=== PATIENT | female | born 1945 | race Caucasian/White ===

== ENCOUNTER 2019-07-11 09:02 | Inpatient (IN) | payer MEDICARE, OTHER ==
[~2019-07-11 09:02] MED LIST: Acetaminophen 325 MG Tab PO SCH; Bisacodyl 5 MG Tab PO PRN; Lidocaine 1%/Sod Bicarbonate in NS 8.4% 1 ML Syringe IDERM PRN; Morphine 8 MG, EPINEPHrine 0.3 MG, Cefuroxime 750 MG, Ketorolac 30 MG, Sodium Chloride ... ONE; Naloxone 0.4 MG/ML SDV IVPUSH PRN; Ondansetron 4 MG/2 ML SDV IVPUSH PRN; Pregabalin 25 MG Cap PO SCH; Ropivacaine 0.5% 5 MG/ML 30 ML SDV ONE; Sodium Chloride 0.9% 10 ML Syringe FLUSH PRN; oxyCODONE ER 10 MG TAB.ER PO SCH
--- NOTE | 2019-07-11 09:46 | PCM.CONS ---
H&P History of Present Illness - General Date of Service: 07/11/19 Admit Problem/Dx: Admission Diagnosis/Problem Admission Diagnosis/Problem Osteoarthritis of knee Source of Information: Patient, Old Records, Provider, RN, RN Notes Reviewed History Limitations: Reports: No Limitations - History of Present Illness Initial Comments - Free Text/Narative: Ananya Cobb is a 74 yo female patient of Dr. Diego who is post-operative day 0 of right TKA. Hospital medicine was consulted for post-operative medical care of the following listed medical conditions. At this time she is resting comfortably in bed. Pain is controlled. She denies any chest pain, shortness of breath, palpitations, nausea, or vomiting. She carries a history of: Osteopenia , Breast cancer, TIA, hypothyroidism, GERD, Questionable PFO on echo from . She is a former smoker. She is a full code. Her primary care provider is Dr. Spicer. Right Knee Pain Score (Numeric/FACES): 0 - Related Data Allergies/Adverse Reactions: Allergies Allergy/AdvReac Type Severity Reaction Status Date / Time adhesive Allergy Rash Verified 07/08/19 14:03 bupropion HCl Allergy Hives Verified 07/08/19 14:03 [From Wellbutrin] wheat Allergy Cannot Verified 07/08/19 14:03 Remember Home Medications: Home Meds Calcium Carbonate [Calcium] 1,000 mg PO DAILY 07/08/19 [History] Cannabidiol (Cbd) Extract [CBD Oil] 1 dose PO DAILY 07/08/19 [History] Cholecalciferol (Vitamin D3) [Vitamin D3] 5,000 unit PO DAILY 07/08/19 [History] FLUoxetine HCl [Fluoxetine HCl] 20 mg PO DAILY 07/08/19 [History] Fish Oil/DHA/EPA [Fish Oil 1,200 MG] 1 cap PO DAILY 07/08/19 [History] Furosemide 40 mg PO DAILY 07/08/19 [History] Gabapentin [Neurontin] 800 mg PO TID 07/08/19 [History] Levothyroxine 75 mcg PO DAILY 07/08/19 [History] Meloxicam 15 mg PO DAILY 07/08/19 [History] Potassium Chloride 20 meq PO DAILY 07/08/19 [History] Vitamin B Complex [B Complex] 1 tab PO DAILY 07/08/19 [History] Zolpidem [Ambien] 10 mg PO BEDTIME PRN 07/08/19 [History] atorvaSTATin [Lipitor] 10 mg PO BEDTIME 07/08/19 [History] Past Medical History HEENT History: Reports: Impaired Vision Cardiovascular History: Reports: None Respiratory History: Reports: None Gastrointestinal History: Reports: None Genitourinary History: Reports: None BRICKLAYER TENDER History: Reports: None Musculoskeletal History: Reports: Osteoarthritis Neurological History: Reports: TIA Other Neuro History: LEFT ARM WEAKNESS AND SLURRED SPEECH, NO PERMANENT DEFECITS Psychiatric History: Reports: None Endocrine/Metabolic History: Reports: None Hematologic History: Reports: None Immunologic History: Reports: None Oncologic (Cancer) History: Reports: Breast Dermatologic History: Reports: None - Past Surgical History Head Surgeries/Procedures: Reports: None HEENT Surgical History: Reports: Eye Surgery, Tonsillectomy Cardiovascular Surgical History: Reports: None Respiratory Surgical History: Reports: None GI Surgical History: Reports: Cholecystectomy, Colonoscopy Female Surgical History: Reports: Breast Biopsy Male Surgical History: Reports: None Endocrine Surgical History: Reports: None Neurological Surgical History: Reports: None Musculoskeletal Surgical History: Reports: None Oncologic Surgical History: Reports: Lumpectomy Dermatological Surgical History: Reports: None Social & Family History - Tobacco Use Smoking Status *Q: Former Smoker Used Tobacco, but Quit: Yes Month/Year Tobacco Last Used: 2004 - Caffeine Use Caffeine Use: Reports: Coffee, Soda - Recreational Drug Use Recreational Drug Use: Yes Drug Use in Last 12 Months: No H&P Review of Systems - Review of Systems: Review Of Systems: See Below General: Reports: No Symptoms. Denies: Fever, Chills HEENT: Reports: No Symptoms. Denies: Headaches, Sore Throat Pulmonary: Reports: No Symptoms. Denies: Shortness of Breath, Wheezing, Pleuritic Chest Pain, Cough, Sputum Cardiovascular: Reports: No Symptoms. Denies: Chest Pain, Palpitations, Dyspnea on Exertion, Orthopnea Gastrointestinal: Reports: No Symptoms. Denies: Abdominal Pain, Constipation, Diarrhea, Nausea, Vomiting Genitourinary: Reports: No Symptoms. Denies: Pain Musculoskeletal: Reports: Leg Pain (right ) Skin: Reports: No Symptoms. Denies: Cyanosis Psychiatric: Reports: No Symptoms. Denies: Confusion Neurological: Reports: Difficulty Walking, Gait Disturbance Hematologic/Lymphatic: Reports: No Symptoms Immunologic: Reports: No Symptoms Exam - Exam Exam: See Below - Exam Quality Assessment: Supplemental Oxygen, DVT Prophylaxis General: Alert, Oriented, Cooperative. No: Mild Distress HEENT: Conjunctiva Clear, EACs Clear, EOMI, Hearing Intact, Nares Patent, Posterior Pharynx Clear, PERRLA. No: Mucosa Moist & [place] (somewhat dry ) Neck: Supple, Trachea Midline Lungs: Clear to Auscultation, Normal Respiratory Effort Cardiovascular: Regular Rate, Regular Rhythm GI/Abdominal Exam: Normal Bowel Sounds, Soft, Non-Tender, No Distention, No Abnormal Bruit (Female) Exam: Deferred Rectal (Female) Exam: Deferred Back Exam: Normal Inspection, Full Range of Motion Extremities: Normal Inspection, Normal Range of Motion, Non-Tender, No Pedal Edema, Normal Capillary Refill Peripheral Pulses: 2+: Radial (L), Radial (R), Dorsalis Pedis (L), Dorsalis Pedis (R) Skin: Warm, Dry, Intact Neurological: Cranial Nerves Intact (Grossly ) Neuro Extensive - Mental Status: Alert, Oriented x3, Normal Mood/Affect Consult PN Assessment/Plan POD#: 0 Procedures: Procedures CATARACT SURG W/IOL 1 STAGE (08/23/15) (1) S/P total knee arthroplasty SNOMED Code(s): 9351779808479, 731171532, 1115201020137 Code(s): Z96.659 - PRESENCE OF UNSPECIFIED ARTIFICIAL KNEE JOINT Priority: High Current Visit: Yes Qualifiers: Laterality: right Qualified Code(s): Z96.651 - Presence of right artificial knee joint (2) Osteoarthritis SNOMED Code(s): 782600182 Code(s): M19.90 - UNSPECIFIED OSTEOARTHRITIS, UNSPECIFIED SITE Priority: High Current Visit: Yes Qualifiers: Osteoarthritis location: knee Osteoarthritis type: primary Laterality: right Qualified Code(s): M17.11 - Unilateral primary osteoarthritis, right knee (3) Breast cancer SNOMED Code(s): 304465555 Code(s): C50.919 - MALIGNANT NEOPLASM OF UNSP SITE OF UNSPECIFIED FEMALE BREAST Priority: Low Current Visit: No Qualifiers: Breast location: unspecified site of breast Estrogen receptor status: unspecified Patient sex: female Laterality: unspecified laterality Qualified Code(s): C50.919 - Malignant neoplasm of unspecified site of unspecified female breast (4) History of TIA (transient ischemic attack) SNOMED Code(s): 617255727 Code(s): Z86.73 - PRSNL HX OF TIA (TIA), AND CEREB INFRC W/O RESID DEFICITS Priority: Low Current Visit: No (5) GERD (gastroesophageal reflux disease) SNOMED Code(s): 961979480 Code(s): K21.9 - GASTRO-ESOPHAGEAL REFLUX DISEASE WITHOUT ESOPHAGITIS Priority: Low Current Visit: No Qualifiers: Esophagitis presence: esophagitis presence not specified Qualified Code(s) : K21.9 - Gastro-esophageal reflux disease without esophagitis (6) Hypothyroidism SNOMED Code(s): 69300763 Code(s): E03.9 - HYPOTHYROIDISM, UNSPECIFIED Priority: Low Current Visit : No Qualifiers: Hypothyroidism type: unspecified Qualified Code(s): E03.9 - Hypothyroidism , unspecified Problem List Initiated/Reviewed/Updated: Yes Plan: I/P: Acute: S/P right total knee arthroplasty - post-operative day 0 -DVT prophylaxis and pain management per primary care team -PT/OT -IS/RT -Monitor oxygen saturation -Titrate oxygen as needed -Home medications reviewed -Vital signs stable -Monitor labs -Pre-operative Hgb was 12.9 -Pre-operative GFR was 83 -Pre-operative BUN was 21 -Echo shoed EF of >70 with moderate mitral insufficiency Osteoarthritis of right knee -Pain management per primary care team Chronic: Osteopenia Breast cancer TIA hypothyroidism GERD Questionable PFO on echo from 04/18/19 Plan: CM for discharge planning GI prophylaxis Home medications as indicated Other orders as listed above Routine AM labs She is a full code. Her PCP is Dr. Spicer Thank you for allowing us to participate in the care of this patient!! Requesting Provider: Dr. Diego Date Consult Requested: 07/11/19 Patient History Reviewed: Yes Admission H&P Reviewed: Yes
[2019-07-11] MEDS: Lactated Ringers 1,000 ML IV SCH ×2 (10:00→16:30)
[2019-07-11] MEDS ORDERED: ceFAZolin 1 GM Vial ONE ×2 (10:43→11:16)
[2019-07-11] MEDS ORDERED: Bupivacaine 0.25% 10 ML SDV ONE (10:43)
[2019-07-11] MEDS ORDERED: Vancomycin 1 GM SDV ONE (10:43)
[2019-07-11] MEDS ORDERED: Iodine/Sodium Iodide 2% Tincture 30 ML Bottle ONE (10:43)
--- NOTE | 2019-07-11 10:56 | PCM.PREANE ---
Preanesthetic Assessment - Procedure Proposed Procedure: RTKA - Anesthesia/Transfusion/Family Hx Anesthesia History: Prior Anesthesia Without Reaction Family History of Anesthesia Reaction: No Transfusion History: No Prior Transfusion(s) - Review of Systems General: No Symptoms Pulmonary: No Symptoms Cardiovascular: No Symptoms Gastrointestinal: No Symptoms Neurological: No Symptoms Other: Reports: Easy Bruising, Thyroid Problems (hypothyroid) - Physical Assessment NPO Status Date: 07/10/19 NPO Status Time: 23:30 Vital Signs: Last Vital Signs Temp 37.1 C 07/11/19 09:20 Pulse 68 07/11/19 09:20 Resp 16 07/11/19 09:20 BP 137/57 L 07/11/19 09:20 Pulse Ox 97 07/11/19 09:20 Height: 1.6 m Weight: 99.337 kg ASA Class: 2 Mental Status: Alert & Oriented x3 Dentition: Reports: Implants (two implants on top), Caries Thyro-Mental Finger Breadths: 3 Mouth Opening Finger Breadths: 3 ROM/Head Extension: Limited/Partial Lungs: Clear to Auscultation, Normal Respiratory Effort Cardiovascular: Regular Rate, Regular Rhythm - Lab Values: Laboratory Last Values MRSA (PCR) Negative 06/29/19 17:02 - Allergies Allergies/Adverse Reactions: Allergies Allergy/AdvReac Type Severity Reaction Status Date / Time adhesive Allergy Rash Verified 07/08/19 14:03 bupropion HCl Allergy Hives Verified 07/08/19 14:03 [From Wellbutrin] wheat Allergy Cannot Verified 07/08/19 14:03 Remember - Blood Blood Available: No Product(s) Available: None - Anesthesia Plan Pre-Op Medication Ordered: None - Acknowledgements Anesthesia Type Planned: Spinal Pt an Appropriate Candidate for the Planned Anesthesia: Yes Alternatives and Risks of Anesthesia Discussed w Pt/Guardian: Yes Pt/Guardian Understands and Agrees with Anesthesia Plan: Yes PreAnesthesia Questionnaire HEENT History: Reports: Impaired Vision Cardiovascular History: Reports: None Respiratory History: Reports: None Gastrointestinal History: Reports: None, GERD Genitourinary History: Reports: None PHYSICAL THERAPY INSTRUCTOR History: Reports: None Musculoskeletal History: Reports: Osteoarthritis Neurological History: Reports: TIA Other Neuro History: LEFT ARM WEAKNESS AND SLURRED SPEECH, NO PERMANENT DEFECITS Psychiatric History: Reports: None Endocrine/Metabolic History: Reports: None Hematologic History: Reports: None, Other (See Below) (Pt states,"I test false positive for hepatis and HIV") Immunologic History: Reports: None Oncologic (Cancer) History: Reports: Breast Dermatologic History: Reports: None - Past Surgical History Head Surgeries/Procedures: Reports: None HEENT Surgical History: Reports: Eye Surgery, Tonsillectomy Cardiovascular Surgical History: Reports: None Respiratory Surgical History: Reports: None GI Surgical History: Reports: Cholecystectomy, Colonoscopy Female Surgical History: Reports: Breast Biopsy Male Surgical History: Reports: None Endocrine Surgical History: Reports: None Neurological Surgical History: Reports: None Musculoskeletal Surgical History: Reports: None Oncologic Surgical History: Reports: Lumpectomy Dermatological Surgical History: Reports: None - SUBSTANCE USE Smoking Status *Q: Former Smoker Tobacco Use Within Last Twelve Months: No Second Hand Smoke Exposure: No Days Per Week of Alcohol Use: 0 Number of Drinks Per Day: 0 Total Drinks Per Week: 0 Recreational Drug Use History: No - HOME MEDS Home Medications: Home Meds Calcium Carbonate [Calcium] 1,000 mg PO DAILY 07/08/19 [History] Cannabidiol (Cbd) Extract [CBD Oil] 1 dose PO DAILY 07/08/19 [History] Cholecalciferol (Vitamin D3) [Vitamin D3] 5,000 unit PO DAILY 07/08/19 [History] FLUoxetine HCl [Fluoxetine HCl] 20 mg PO DAILY 07/08/19 [History] Fish Oil/DHA/EPA [Fish Oil 1,200 MG] 1 cap PO DAILY 07/08/19 [History] Furosemide 40 mg PO DAILY 07/08/19 [History] Gabapentin [Neurontin] 800 mg PO TID 07/08/19 [History] Levothyroxine 75 mcg PO DAILY 07/08/19 [History] Meloxicam 15 mg PO DAILY 07/08/19 [History] Potassium Chloride 20 meq PO DAILY 07/08/19 [History] Vitamin B Complex [B Complex] 1 tab PO DAILY 07/08/19 [History] Zolpidem [Ambien] 10 mg PO BEDTIME PRN 07/08/19 [History] atorvaSTATin [Lipitor] 10 mg PO BEDTIME 07/08/19 [History] - CURRENT (IN HOUSE) MEDS Current Meds: Current Medications Acetaminophen (Tylenol) 975 mg PO ONETIME [place] Stop: 07/11/19 12:00 Last Admin: 07/11/19 09:46 Dose: 975 mg Bisacodyl (Dulcolax) 5 mg PO DAILY PRN PRN Reason: Constipation Cyclobenzaprine HCl (Flexeril) 5 mg PO BID PRN PRN Reason: Spasms Docusate Sodium (Colace) 100 mg PO BID [place] Famotidine (Pepcid) 20 mg PO Q12H [facility] Lactated Ringer's (Ringers, Lactated) 1,000 mls @ 125 mls/hr IV ASDIRECTED [facility] Stop: 07/11/19 23:00 Last Admin: 07/11/19 10:00 Dose: 125 mls/hr Cefazolin Sodium/Dextrose 2 gm (/ Premix) 50 mls @ 100 mls/hr IV Q8H [facility] Stop: 07/11/19 23:29 Ketorolac Tromethamine (Toradol) 15 mg IVPUSH Q6H PRN PRN Reason: Pain Lidocaine/Sodium Bicarbonate (Buffered Lidocaine 1% In Ns 8.4%) 0.25 ml IDERM ONETIME PRN PRN Reason: Prior to IV Start Stop: 07/11/19 18:00 Last Admin: 07/11/19 09:59 Dose: 0.25 ml Magnesium Hydroxide (Milk Of Magnesia) 30 ml PO BID PRN PRN Reason: Constipation Morphine Sulfate (Morphine) 2 mg IVPUSH Q2H PRN PRN Reason: Breakthrough Pain Naloxone HCl (Narcan) 0.1 mg IVPUSH Q5M PRN PRN Reason: Oversedation Ondansetron HCl (Zofran) 4 mg IVPUSH Q6H PRN PRN Reason: Nausea/Vomiting Oxycodone HCl (Oxycontin) 10 mg PO ONETIME [facility] Stop: 07/11/19 12:00 Last Admin: 07/11/19 09:46 Dose: 10 mg Oxycodone/Acetaminophen (Percocet 325-5 Mg) 1 - 2 tab PO Q4H PRN PRN Reason: Pain Pregabalin (Lyrica) 50 mg PO ONETIME [facility] Stop: 07/11/19 12:00 Last Admin: 07/11/19 09:46 Dose: 50 mg Senna (Senna) 8.6 mg PO BID PRN PRN Reason: Constipation Sodium Chloride (Saline Flush) 10 ml FLUSH ASDIRECTED PRN PRN Reason: Keep Vein Open Stop: 07/11/19 18:00 Discontinued Medications Bupivacaine HCl (Sensorcaine-Mpf 0.25%) Confirm Administered Dose 30 ml .ROUTE .STK-MED ONE Stop: 07/11/19 10:44 Cefazolin Sodium (Ancef) Confirm Administered Dose 2 gm .ROUTE .STK-MED ONE Stop: 07/11/19 10:44 Morphine Sulfate 8 mg/Epinephrine HCl 0.3 mg/Cefuroxime Sodium 750 mg/Ketorolac Tromethamine 30 mg/Sodium Chloride 27.9 ml 0 mg .XX ONETIME ONE Stop: 07/11/19 08:01 Iodine (Iodine 2% Mild Tincture) Confirm Administered Dose 30 ml .ROUTE .STK- MED ONE Stop: 07/11/19 10:44 Ropivacaine (Naropin 0.5%) Confirm Administered Dose 30 ml .ROUTE .STK-MED ONE Stop: 07/11/19 07:28 Tranexamic Acid (Cyklokapron) Confirm Administered Dose 1,000 mg .ROUTE .STK- MED ONE Stop: 07/11/19 10:44 Vancomycin HCl (Vancomycin) Confirm Administered Dose 1 gm .ROUTE .STK-MED ONE Stop: 07/11/19 10:44
[2019-07-11] MEDS ORDERED: Ketorolac 15 MG/ML SDV IVPUSH PRN (11:00)
[2019-07-11] MEDS ORDERED: Propofol 200 MG/20 ML SDV ONE ×2 (11:18→15:07)
[2019-07-11] MEDS ORDERED: fentaNYL 100 MCG/2 ML SDV ONE (11:19)
[2019-07-11] MEDS ORDERED: Midazolam 1 MG/ML 2 ML SDV ONE (11:19)
[2019-07-11] MEDS ORDERED: Lidocaine 1% 4 ML ONE (11:20)
[2019-07-11] MEDS ORDERED: Morphine 2 MG/ML Syringe IVPUSH PRN (12:00)
[2019-07-11] MEDS ORDERED: ePHEDrine/Normal Saline 25 MG/5 ML Syringe ONE ×2 (13:59→15:41)
[2019-07-11] MEDS ORDERED: Lactated Ringers 1,000 ML ONE ×2 (14:06→15:29)
[2019-07-11] MEDS ORDERED: Ondansetron 4 MG/2 ML SDV ONE (15:16)
--- NOTE | 2019-07-11 15:50 | PCM.POSTAN ---
POST ANESTHESIA ASSESSMENT - MENTAL STATUS Mental Status: Alert, Oriented - VITAL SIGNS Vital Signs: Last Vital Signs Temp 37.1 C 07/11/19 09:20 Pulse 68 07/11/19 09:20 Resp 16 07/11/19 09:20 BP 137/57 L 07/11/19 09:20 Pulse Ox 97 07/11/19 09:20 - RESPIRATORY Respiratory Status: Respiratory Rate WNL, Airway Patent, O2 Saturation Stable - CARDIOVASCULAR CV Status: Pulse Rate WNL, Blood Pressure Stable - GASTROINTESTINAL GI Status: No Symptoms - PAIN Pain Score: 0 - POST OP HYDRATION Hydration Status: Adequate & Stable
[2019-07-11] MEDS ORDERED: Ondansetron 4 MG/2 ML SDV IVPUSH PRN (15:51)
[2019-07-11] MEDS ORDERED: fentaNYL 100 MCG/2 ML SDV IVPUSH PRN (15:51)
[2019-07-11] MEDS ORDERED: ePHEDrine 50 MG/ML SDV IVPUSH PRN (15:51)
--- NOTE | 2019-07-11 16:34 | CR ---
Right knee: AP and lateral views of the right knee were obtained. Comparison: No prior right knee exam. Knee prosthesis is seen. Components are aligned. Underlying bony structures are intact. Soft tissue air is noted from surgical procedure. Impression: 1. Satisfactory postoperative radiographic appearance of a recently placed right knee prosthesis. Diagnostic code #2 This report was dictated in [place] Standard Time
--- NOTE | 2019-07-11 16:59 | PCM.SN ---
- Free Text/Narrative Note: Right selective femoral nerve block at the adductor canal for post-procedure pain control Time Out: 1636 Start: 1636 End: 1644 Chart reviewed. Consent signed. Questions answered. Appropriate monitors applied. Time out performed. Right mid-shaft femur evaluated with ultrasound. Scanning medially femur, I was able to identify the femoral artery in the adductor canal. The saphenous nerve was lateral to the artery. The skin was prepped lateral to the ultrasound probe with chlorahexadine. The 21ga 4 insulated block needle was inserted under direct ultrasound guidance into the adductor canal. 25mL of 0.5% ropivacaine with 1:200,000 epinephrine was injected cirmcumferentially about the nerve with intermittent negative aspiration every 5mL. Patient tolerated the procedure well. No complications noted. See pictures on progress note and vital signs on nurses notes. Block completed postoperatively. Nova Hernandez CRNA
[2019-07-11] MEDS ORDERED: ceFAZolin 2 GM in Premix Bag 1 BAG IV SCH (19:00)
[2019-07-11] MEDS ORDERED: Sennosides 8.6 MG Tab PO PRN (21:00)
[2019-07-11] MEDS ORDERED: Cyclobenzaprine 10 MG Tab PO PRN (21:00)
[2019-07-11] MEDS ORDERED: Magnesium Hydroxide 400 MG/5 ML Susp 30 ML Cup PO PRN (21:00)
[2019-07-11] MEDS ORDERED: Simvastatin 10 MG Tab PO SCH (21:00)
[2019-07-11] MEDS ORDERED: Zolpidem 10 MG Tab PO PRN (21:00)
[2019-07-11] MEDS ORDERED: FLUoxetine 20 MG Cap PO ONE (21:45)
[2019-07-11] MEDS: ceFAZolin 2 GM in Premix Bag 1 BAG IV SCH (22:08)
[2019-07-11] MEDS: Gabapentin 100 MG Cap PO SCH (22:10)
[2019-07-11] MEDS: Gabapentin 600 MG Tab PO SCH (22:10)
[2019-07-11] MEDS: Docusate Sodium 100 MG Cap PO SCH (22:11)
[2019-07-11] MEDS: Famotidine 20 MG Tab PO SCH (22:11)
[2019-07-11] MEDS: Acetaminophen/oxyCODONE 325-5 MG Tab PO PRN (22:42)
[2019-07-12] MEDS: Acetaminophen/oxyCODONE 325-5 MG Tab PO PRN ×3 (03:32→10:56)
[2019-07-12] MEDS ORDERED: Levothyroxine 75 MCG Tab PO SCH (06:00)
[2019-07-12] MEDS: ceFAZolin 2 GM in Premix Bag 1 BAG IV SCH (06:08)
--- NOTE | 2019-07-12 06:47 | PCM.CONSN ---
- General Info Date of Service: 07/12/19 Admission Dx/Problem (Free Text): Admission Diagnosis/Problem Admission Diagnosis/Problem Osteoarthritis of knee Functional Status: Reports: Pain Controlled, Tolerating Diet, Ambulating, Urinating, Incentive Spirometry. Denies: New Symptoms - Review of Systems General: Reports: No Symptoms. Denies: Fever, Chills HEENT: Reports: No Symptoms. Denies: Headaches, Sore Throat Pulmonary: Reports: No Symptoms. Denies: Shortness of Breath, Cough, Sputum, Wheezing Cardiovascular: Reports: No Symptoms. Denies: Chest Pain, Palpitations, Edema Gastrointestinal: Reports: No Symptoms. Denies: Abdominal Pain, Constipation, Diarrhea, Nausea, Vomiting Genitourinary: Reports: No Symptoms. Denies: Pain Musculoskeletal: Reports: Leg Pain (right ) Skin: Reports: No Symptoms. Denies: Cyanosis Neurological: Reports: Difficulty Walking, Gait Disturbance Psychiatric: Reports: No Symptoms - Patient Data Vitals - Most Recent: Last Vital Signs Temp 98.1 F 07/12/19 03:31 Pulse 73 07/12/19 03:31 Resp 18 07/12/19 03:31 BP 125/49 L 07/12/19 03:31 Pulse Ox 92 L 07/12/19 03:31 Weight - Most Recent: 229 lb 3.2 oz I&O - Last 24 Hours: Intake & Output 07/11/19 07/11/19 07/12/19 14:59 22:59 06:59 Intake Total 900 900 Output Total 850 Balance 900 50 Lab Results Last 24 Hours: Laboratory Results - last 24 hr 07/12/19 Range/Units 05:17 WBC 8.30 (3.98-10.04) K/mm3 RBC 3.78 L (3.98-5.22) M/mm3 Hgb 10.7 L (11.2-15.7) gm/dl Hct 35.1 (34.1-44.9) % MCV 92.9 (79.4-94.8) fl MCH 28.3 (25.6-32.2) pg MCHC 30.5 L (32.2-35.5) g/dl RDW Std Deviation 51.7 H (36.4-46.3) fL Plt Count 184 (182-369) K/mm3 MPV 10.5 (9.4-12.3) fl Med Orders - Current: Current Medications Bisacodyl (Dulcolax) 5 mg PO DAILY PRN PRN Reason: Constipation Calcium Carbonate/Glycine (Calcium Carbonate) 1,200 mg PO DAILY [facility] Cholecalciferol (Vitamin D3) 5,000 unit PO DAILY [facility] Cyclobenzaprine HCl (Flexeril) 5 mg PO BID PRN PRN Reason: Spasms Docusate Sodium (Colace) 100 mg PO BID [facility] Last Admin: 07/11/19 22:11 Dose: 100 mg Famotidine (Pepcid) 20 mg PO Q12H [facility] Last Admin: 07/11/19 22:11 Dose: 20 mg Fluoxetine HCl (Prozac) 20 mg PO BEDTIME [facility] Gabapentin (Neurontin) 600 mg PO TID [facility] Last Admin: 07/11/19 22:10 Dose: 600 mg Gabapentin (Neurontin) 200 mg PO TID [facility] Last Admin: 07/11/19 22:10 Dose: 200 mg Cefazolin Sodium/Dextrose 2 gm (/ Premix) 50 mls @ 100 mls/hr IV Q8H [facility] Stop: 07/12/19 17:00 Last Admin: 07/12/19 06:08 Dose: 100 mls/hr Ketorolac Tromethamine (Toradol) 15 mg IVPUSH Q6H PRN PRN Reason: Pain Last Admin: 07/11/19 19:44 Dose: 15 mg Levothyroxine Sodium (Levothyroxine) 75 mcg PO ACBREAKFAST [facility] Last Admin: 07/12/19 06:08 Dose: 75 mcg Magnesium Hydroxide (Milk Of Magnesia) 30 ml PO BID PRN PRN Reason: Constipation Morphine Sulfate (Morphine) 2 mg IVPUSH Q2H PRN PRN Reason: Breakthrough Pain Naloxone HCl (Narcan) 0.1 mg IVPUSH Q5M PRN PRN Reason: Oversedation Ondansetron HCl (Zofran) 4 mg IVPUSH Q6H PRN PRN Reason: Nausea/Vomiting Oxycodone/Acetaminophen (Percocet 325-5 Mg) 1 - 2 tab PO Q4H PRN PRN Reason: Pain Last Admin: 07/12/19 03:32 Dose: 2 tab Potassium Chloride (Klor-Con M20) 20 meq PO DAILY [facility] Rivaroxaban (Xarelto) 10 mg PO DAILY [facility] Senna (Senna) 8.6 mg PO BID PRN PRN Reason: Constipation Simvastatin (Zocor) 10 mg PO BEDTIME [facility] Last Admin: 07/11/19 22:10 Dose: 10 mg Vitamin B Complex/Vitamin C (Super B With Vitamin C) 1 cap PO DAILY [facility] Zolpidem Tartrate (Ambien) 10 mg PO BEDTIME PRN PRN Reason: Insomnia Discontinued Medications Acetaminophen (Tylenol) 975 mg PO ONETIME [facility] Stop: 07/11/19 12:00 Last Admin: 07/11/19 09:46 Dose: 975 mg Bupivacaine HCl (Sensorcaine-Mpf 0.25%) Confirm Administered Dose 30 ml .ROUTE .STK-MED ONE Stop: 07/11/19 10:44 Cefazolin Sodium (Ancef) Confirm Administered Dose 2 gm .ROUTE .STK-MED ONE Stop: 07/11/19 10:44 Cefazolin Sodium (Ancef) Confirm Administered Dose 2 gm .ROUTE .STK-MED ONE Stop: 07/11/19 11:17 Morphine Sulfate 8 mg/Epinephrine HCl 0.3 mg/Cefuroxime Sodium 750 mg/Ketorolac Tromethamine 30 mg/Sodium Chloride 27.9 ml 0 mg .XX ONETIME ONE Stop: 07/11/19 08:01 Ephedrine Sulfate (Ephedrine In Ns) Confirm Administered Dose 25 mg .ROUTE .STK- MED ONE Stop: 07/11/19 14:00 Ephedrine Sulfate (Ephedrine In Ns) Confirm Administered Dose 25 mg .ROUTE .STK- MED ONE Stop: 07/11/19 15:42 Ephedrine Sulfate (Ephedrine Sulfate) 5 mg IVPUSH ASDIRECTED PRN PRN Reason: Hypotension Stop: 07/11/19 18:00 Fentanyl (Sublimaze) Confirm Administered Dose 100 mcg .ROUTE .STK-MED ONE Stop: 07/11/19 11:20 Fentanyl (Sublimaze) 50 mcg IVPUSH Q5M PRN PRN Reason: pain Stop: 07/11/19 18:00 Fluoxetine HCl (Prozac) 20 mg PO DAILY [facility] Fluoxetine HCl (Prozac) 20 mg PO ONETIME ONE Stop: 07/11/19 21:46 Last Admin: 07/11/19 22:11 Dose: 20 mg Lactated Ringer's (Ringers, Lactated) 1,000 mls @ 125 mls/hr IV ASDIRECTED [facility] Stop: 07/11/19 23:00 Last Admin: 07/11/19 16:30 Dose: 125 mls/hr Cefazolin Sodium/Dextrose 2 gm (/ Premix) 50 mls @ 100 mls/hr IV Q8H [facility] Stop: 07/12/19 11:29 Lidocaine HCl (Xylocaine-Mpf 1%) Confirm Administered Dose 4 mls @ as directed .ROUTE .STK-MED ONE Stop: 07/11/19 11:21 Lactated Ringer's (Ringers, Lactated) Confirm Administered Dose 1,000 mls @ as directed .ROUTE .STK-MED ONE Stop: 07/11/19 14:07 Lactated Ringer's (Ringers, Lactated) Confirm Administered Dose 1,000 mls @ as directed .ROUTE .STK-MED ONE Stop: 07/11/19 15:30 Iodine (Iodine 2% Mild Tincture) Confirm Administered Dose 30 ml .ROUTE .STK- MED ONE Stop: 07/11/19 10:44 Lidocaine/Sodium Bicarbonate (Buffered Lidocaine 1% In Ns 8.4%) 0.25 ml IDERM ONETIME PRN PRN Reason: Prior to IV Start Stop: 07/11/19 18:00 Last Admin: 07/11/19 09:59 Dose: 0.25 ml Midazolam HCl (Versed 1 Mg/Ml) Confirm Administered Dose 2 mg .ROUTE .STK-MED ONE Stop: 07/11/19 11:20 Ondansetron HCl (Zofran) Confirm Administered Dose 4 mg .ROUTE .STK-MED ONE Stop: 07/11/19 15:17 Ondansetron HCl (Zofran) 4 mg IVPUSH ONETIME PRN PRN Reason: Nausea/Vomiting Stop: 07/11/19 18:00 Oxycodone HCl (Oxycontin) 10 mg PO ONETIME [facility] Stop: 07/11/19 12:00 Last Admin: 07/11/19 09:46 Dose: 10 mg Pregabalin (Lyrica) 50 mg PO ONETIME [facility] Stop: 07/11/19 12:00 Last Admin: 07/11/19 09:46 Dose: 50 mg Propofol (Diprivan 20 Ml) Confirm Administered Dose 200 mg .ROUTE .STK-MED ONE Stop: 07/11/19 11:19 Propofol (Diprivan 20 Ml) Confirm Administered Dose 200 mg .ROUTE .STK-MED ONE Stop: 07/11/19 15:08 Ropivacaine (Naropin 0.5%) Confirm Administered Dose 30 ml .ROUTE .STK-MED ONE Stop: 07/11/19 07:28 Sodium Chloride (Saline Flush) 10 ml FLUSH ASDIRECTED PRN PRN Reason: Keep Vein Open Stop: 07/11/19 18:00 Tranexamic Acid (Cyklokapron) Confirm Administered Dose 1,000 mg .ROUTE .STK- MED ONE Stop: 07/11/19 10:44 Vancomycin HCl (Vancomycin) Confirm Administered Dose 1 gm .ROUTE .STK-MED ONE Stop: 07/11/19 10:44 - Exam Quality Assessment: DVT Prophylaxis. No: Supplemental Oxygen General: Alert, Oriented, Cooperative, No Acute Distress HEENT: Pupils Equal, Pupils Reactive, Mucous Membr. Moist/[place] Neck: Supple, Trachea Midline Lungs: Clear to Auscultation, Normal Respiratory Effort Cardiovascular: Regular Rate, Regular Rhythm GI/Abdominal Exam: Normal Bowel Sounds, Soft, Non-Tender, No Distention, No Abnormal Bruit (Female) Exam: Deferred Back Exam: Normal Inspection, Full Range of Motion Extremities: No Pedal Edema, Normal Capillary Refill, Leg Pain, Limited Range of Motion, Other (Bandage in place on right leg. Cooling pack in place ) Peripheral Pulses: 2+: Radial (L), Radial (R), Dorsalis Pedis (L), Dorsalis Pedis (R) Skin: Warm, Dry, Intact Wound/Incisions: Dressing Dry and Intact Neurological: No New Focal Deficit Psy/Mental Status: Alert, Normal Affect, Normal Mood Sepsis Event Note - Evaluation Current Stage of Sepsis: Ruled Out Reason for Ruling Out Sepsis: Not applicable Consult PN Assessment/Plan POD#: 1 Procedures: Procedures CATARACT SURG W/IOL 1 STAGE (08/23/15) (1) S/P total knee arthroplasty SNOMED Code(s): 2651498430333, 918235728, 0054302902606 Code(s): Z96.659 - PRESENCE OF UNSPECIFIED ARTIFICIAL KNEE JOINT Priority: High Current Visit: Yes Qualifiers: Laterality: right Qualified Code(s): Z96.651 - Presence of right artificial knee joint (2) Osteoarthritis SNOMED Code(s): 325181348 Code(s): M19.90 - UNSPECIFIED OSTEOARTHRITIS, UNSPECIFIED SITE Priority: High Current Visit: Yes Qualifiers: Osteoarthritis location: knee Osteoarthritis type: primary Laterality: right Qualified Code(s): M17.11 - Unilateral primary osteoarthritis, right knee (3) Breast cancer SNOMED Code(s): 658413817 Code(s): C50.919 - MALIGNANT NEOPLASM OF UNSP SITE OF UNSPECIFIED FEMALE BREAST Priority: Low Current Visit: No Qualifiers: Breast location: unspecified site of breast Estrogen receptor status: unspecified Patient sex: female Laterality: unspecified laterality Qualified Code(s): C50.919 - Malignant neoplasm of unspecified site of unspecified female breast (4) History of TIA (transient ischemic attack) SNOMED Code(s): 328799406 Code(s): Z86.73 - PRSNL HX OF TIA (TIA), AND CEREB INFRC W/O RESID DEFICITS Priority: Low Current Visit: No (5) GERD (gastroesophageal reflux disease) SNOMED Code(s): 114293894 Code(s): K21.9 - GASTRO-ESOPHAGEAL REFLUX DISEASE WITHOUT ESOPHAGITIS Priority: Low Current Visit: No Qualifiers: Esophagitis presence: esophagitis presence not specified Qualified Code(s) : K21.9 - Gastro-esophageal reflux disease without esophagitis (6) Hypothyroidism SNOMED Code(s): 56551782 Code(s): E03.9 - HYPOTHYROIDISM, UNSPECIFIED Priority: Low Current Visit : No Qualifiers: Hypothyroidism type: unspecified Qualified Code(s): E03.9 - Hypothyroidism , unspecified Problem List Initiated/Reviewed/Updated: Yes My Orders Last 24 Hours: My Active Orders 07/11/19 21:00 Gabapentin [Neurontin] 200 mg PO TID Gabapentin [Neurontin] 600 mg PO TID Simvastatin [Zocor] 10 mg PO BEDTIME Zolpidem [Ambien] 10 mg PO BEDTIME PRN 07/12/19 06:00 Levothyroxine 75 mcg PO ACBREAKFAST 07/12/19 09:00 Calcium Carbonate 1,200 mg PO DAILY Cholecalciferol (Vitamin D3) [Vitamin D3] 5,000 unit PO DAILY Potassium Chloride [Klor-Con M20] 20 meq PO DAILY Vitamin B Complex with C [Super B With Vitamin C] 1 cap PO DAILY 12/10/19 21:00 FLUoxetine [PROzac] 20 mg PO BEDTIME Plan: I/P: Acute: S/P right total knee arthroplasty - post-operative day 1 -DVT prophylaxis and pain management per primary care team -PT/OT -IS/RT -Monitor oxygen saturation -Titrate oxygen as needed -Home medications reviewed -Vital signs stable -Monitor labs -Pre-operative Hgb was 12.9; Now 10.7 -Pre-operative GFR was 83; Now >60 -Pre-operative BUN was 21; Now 21.4 -Echo shoed EF of >70 with moderate mitral insufficiency Osteoarthritis of right knee -Pain management per primary care team Chronic: Osteopenia Breast cancer TIA hypothyroidism GERD Questionable PFO on echo from 04/18/19 Plan: CM for discharge planning GI prophylaxis Home medications as indicated Other orders as listed above Routine AM labs She is a full code. Her PCP is Dr. Spicer From a hospitalist standpoint Ananya is doing well. She has been up ambulating and working with therapies. She is off of oxygen and has urinated. She has tolerated a diet. She has been utilizing her IS. Her labs and vital signs remain stable. She is cleared for discharge pending primary team and PT/OT agreement. Thank you for allowing us to participate in the care of this patient!!
[2019-07-12] MEDS: Gabapentin 600 MG Tab PO SCH (08:27)
[2019-07-12] MEDS: Docusate Sodium 100 MG Cap PO SCH (08:27)
[2019-07-12] MEDS: Gabapentin 100 MG Cap PO SCH (08:27)
[2019-07-12] MEDS: Famotidine 20 MG Tab PO SCH (08:28)
[2019-07-12 08:35] VITALS: BP 126/46; PULSE 90
[2019-07-12] MEDS ORDERED: Potassium Chloride 20 MEQ Tab.ER PO SCH (09:00)
[2019-07-12] MEDS ORDERED: Rivaroxaban 10 MG Tab PO SCH (09:00)
[2019-07-12] MEDS ORDERED: FLUoxetine 20 MG Cap PO SCH ×2 (09:00→21:00)
[2019-07-12] MEDS ORDERED: Calcium Carbonate 600 MG Tab PO SCH (09:00)
[2019-07-12] MEDS ORDERED: Cholecalciferol (Vitamin D3) 5,000 UNIT Tab PO SCH (09:00)
[2019-07-12] MEDS ORDERED: Vitamin B Complex With Vitamin C Cap PO SCH (09:00)
[2019-07-12] MEDS ORDERED: ceFAZolin 2 GM in Premix Bag 1 BAG IV ONE (11:30)
--- NOTE | 2019-07-12 11:38 | PCM48HPAN ---
Post Anesthesia Note - EVALUATION WITHIN 48HRS OF ANESTHETIC Vital Signs in Normal Range: Yes Patient Participated in Evaluation: Yes Respiratory Function Stable: Yes Airway Patent: Yes Cardiovascular Function Stable: Yes Hydration Status Stable: Yes Pain Control Satisfactory: Yes Nausea and Vomiting Control Satisfactory: Yes Mental Status Recovered: Yes Vital Signs: Last Vital Signs Temp 37.2 C 07/12/19 08:26 Pulse 90 07/12/19 08:26 Resp 16 07/12/19 08:26 BP 126/46 L 07/12/19 08:26 Pulse Ox 90 L 07/12/19 08:00
--- NOTE | 2019-07-12 12:22 | PCM.SURGPN ---
- General Info Date of Service: 07/12/19 POD#: 1 Functional Status: Reports: Pain Controlled, Tolerating Diet, Ambulating, Urinating, Incentive Spirometry, Other (The pt states she will work hard with therapy to be active for her grandchildren.) - Patient Data Vitals - Most Recent: Last Vital Signs Temp 99.0 F 07/12/19 08:26 Pulse 90 07/12/19 08:26 Resp 16 07/12/19 08:26 BP 126/46 L 07/12/19 08:26 Pulse Ox 90 L 07/12/19 08:00 Weight - Most Recent: 229 lb 3.2 oz I&O - Last 24 Hours: Intake & Output 07/11/19 07/12/19 07/12/19 22:59 06:59 14:59 Intake Total 900 900 Output Total 850 Balance 900 50 Lab Results Last 24 Hrs: Laboratory Results - last 24 hr 07/12/19 07/12/19 Range/Units 05:17 05:17 WBC 8.30 (3.98-10.04) K/mm3 RBC 3.78 L (3.98-5.22) M/mm3 Hgb 10.7 L (11.2-15.7) gm/dl Hct 35.1 (34.1-44.9) % MCV 92.9 (79.4-94.8) fl MCH 28.3 (25.6-32.2) pg MCHC 30.5 L (32.2-35.5) g/dl RDW Std Deviation 51.7 H (36.4-46.3) fL Plt Count 184 (182-369) K/mm3 MPV 10.5 (9.4-12.3) fl Sodium 143 (136-145) mEq/L Potassium 4.3 (3.5-5.1) mEq/L Chloride 108 H (98-107) mEq/L Carbon Dioxide 27 (21-32) mEq/L Anion Gap 12.3 (5-15) BUN 15 (7-18) mg/dL Creatinine 0.7 (0.55-1.02) mg/dL Est Cr Clr Drug Dosing 61.81 mL/min Estimated GFR (MDRD) > 60 (>60) mL/min BUN/Creatinine Ratio 21.4 H (14-18) Glucose 110 (83-115) mg/dL Calcium 8.2 L (8.5-10.1) mg/dL Total Bilirubin 0.8 (0.2-1.0) mg/dL AST 21 (15-37) U/L ALT 22 (14-59) U/L Alkaline Phosphatase 44 L (46-116) U/L Total Protein 6.3 L (6.4-8.2) g/dl Albumin 2.7 L (3.4-5.0) g/dl Globulin 3.6 gm/dL Albumin/Globulin Ratio 0.8 L (1-2) Med Orders - Current: Current Medications Bisacodyl (Dulcolax) 5 mg PO DAILY PRN PRN Reason: Constipation Calcium Carbonate/Glycine (Calcium Carbonate) 1,200 mg PO DAILY [facility] Last Admin: 07/12/19 08:28 Dose: 1,200 mg Cholecalciferol (Vitamin D3) 5,000 unit PO DAILY [facility] Last Admin: 07/12/19 08:28 Dose: 5,000 unit Cyclobenzaprine HCl (Flexeril) 5 mg PO BID PRN PRN Reason: Spasms Last Admin: 07/12/19 08:28 Dose: 5 mg Docusate Sodium (Colace) 100 mg PO BID [facility] Last Admin: 07/12/19 08:27 Dose: 100 mg Famotidine (Pepcid) 20 mg PO Q12H [facility] Last Admin: 07/12/19 08:28 Dose: 20 mg Fluoxetine HCl (Prozac) 20 mg PO BEDTIME [facility] Gabapentin (Neurontin) 600 mg PO TID [facility] Last Admin: 07/12/19 08:27 Dose: 600 mg Gabapentin (Neurontin) 200 mg PO TID [facility] Last Admin: 07/12/19 08:27 Dose: 200 mg Ketorolac Tromethamine (Toradol) 15 mg IVPUSH Q6H PRN PRN Reason: Pain Last Admin: 07/11/19 19:44 Dose: 15 mg Levothyroxine Sodium (Levothyroxine) 75 mcg PO ACBREAKFAST [facility] Last Admin: 07/12/19 06:08 Dose: 75 mcg Magnesium Hydroxide (Milk Of Magnesia) 30 ml PO BID PRN PRN Reason: Constipation Morphine Sulfate (Morphine) 2 mg IVPUSH Q2H PRN PRN Reason: Breakthrough Pain Naloxone HCl (Narcan) 0.1 mg IVPUSH Q5M PRN PRN Reason: Oversedation Ondansetron HCl (Zofran) 4 mg IVPUSH Q6H PRN PRN Reason: Nausea/Vomiting Oxycodone/Acetaminophen (Percocet 325-5 Mg) 1 - 2 tab PO Q4H PRN PRN Reason: Pain Last Admin: 07/12/19 10:56 Dose: 2 tab Potassium Chloride (Klor-Con M20) 20 meq PO DAILY [facility] Last Admin: 07/12/19 08:28 Dose: 20 meq Rivaroxaban (Xarelto) 10 mg PO DAILY [facility] Last Admin: 07/12/19 08:28 Dose: 10 mg Senna (Senna) 8.6 mg PO BID PRN PRN Reason: Constipation Simvastatin (Zocor) 10 mg PO BEDTIME [facility] Last Admin: 07/11/19 22:10 Dose: 10 mg Vitamin B Complex/Vitamin C (Super B With Vitamin C) 1 cap PO DAILY [facility] Last Admin: 07/12/19 08:28 Dose: 1 cap Zolpidem Tartrate (Ambien) 10 mg PO BEDTIME PRN PRN Reason: Insomnia Discontinued Medications Acetaminophen (Tylenol) 975 mg PO ONETIME [facility] Stop: 07/11/19 12:00 Last Admin: 07/11/19 09:46 Dose: 975 mg Bupivacaine HCl (Sensorcaine-Mpf 0.25%) Confirm Administered Dose 30 ml .ROUTE .STK-MED ONE Stop: 07/11/19 10:44 Last Admin: 07/11/19 15:06 Dose: 30 ml Cefazolin Sodium (Ancef) Confirm Administered Dose 2 gm .ROUTE .STK-MED ONE Stop: 07/11/19 10:44 Last Admin: 07/11/19 15:03 Dose: 2 gm Cefazolin Sodium (Ancef) Confirm Administered Dose 2 gm .ROUTE .STK-MED ONE Stop: 07/11/19 11:17 Morphine Sulfate 8 mg/Epinephrine HCl 0.3 mg/Cefuroxime Sodium 750 mg/Ketorolac Tromethamine 30 mg/Sodium Chloride 27.9 ml 0 mg .XX ONETIME ONE Stop: 07/11/19 08:01 Last Admin: 07/11/19 15:06 Dose: 788.3 mg Ephedrine Sulfate (Ephedrine In Ns) Confirm Administered Dose 25 mg .ROUTE .STK- MED ONE Stop: 07/11/19 14:00 Ephedrine Sulfate (Ephedrine In Ns) Confirm Administered Dose 25 mg .ROUTE .STK- MED ONE Stop: 07/11/19 15:42 Ephedrine Sulfate (Ephedrine Sulfate) 5 mg IVPUSH ASDIRECTED PRN PRN Reason: Hypotension Stop: 07/11/19 18:00 Fentanyl (Sublimaze) Confirm Administered Dose 100 mcg .ROUTE .STK-MED ONE Stop: 07/11/19 11:20 Fentanyl (Sublimaze) 50 mcg IVPUSH Q5M PRN PRN Reason: pain Stop: 07/11/19 18:00 Fluoxetine HCl (Prozac) 20 mg PO DAILY [facility] Fluoxetine HCl (Prozac) 20 mg PO ONETIME ONE Stop: 07/11/19 21:46 Last Admin: 07/11/19 22:11 Dose: 20 mg Lactated Ringer's (Ringers, Lactated) 1,000 mls @ 125 mls/hr IV ASDIRECTED [facility] Stop: 07/11/19 23:00 Last Admin: 07/11/19 16:30 Dose: 125 mls/hr Cefazolin Sodium/Dextrose 2 gm (/ Premix) 50 mls @ 100 mls/hr IV Q8H [facility] Stop: 07/12/19 11:29 Lidocaine HCl (Xylocaine-Mpf 1%) Confirm Administered Dose 4 mls @ as directed .ROUTE .STK-MED ONE Stop: 07/11/19 11:21 Lactated Ringer's (Ringers, Lactated) Confirm Administered Dose 1,000 mls @ as directed .ROUTE .STK-MED ONE Stop: 07/11/19 14:07 Lactated Ringer's (Ringers, Lactated) Confirm Administered Dose 1,000 mls @ as directed .ROUTE .STK-MED ONE Stop: 07/11/19 15:30 Cefazolin Sodium/Dextrose 2 gm (/ Premix) 50 mls @ 100 mls/hr IV Q8H [facility] Stop: 07/12/19 17:00 Last Admin: 07/12/19 06:08 Dose: 100 mls/hr Cefazolin Sodium/Dextrose 2 gm (/ Premix) 50 mls @ 100 mls/hr IV ONETIME ONE Stop: 07/12/19 11:59 Last Admin: 07/12/19 12:00 Dose: 100 mls/hr Iodine (Iodine 2% Mild Tincture) Confirm Administered Dose 30 ml .ROUTE .STK- MED ONE Stop: 07/11/19 10:44 Last Admin: 07/11/19 14:58 Dose: 18 ml Lidocaine/Sodium Bicarbonate (Buffered Lidocaine 1% In Ns 8.4%) 0.25 ml IDERM ONETIME PRN PRN Reason: Prior to IV Start Stop: 07/11/19 18:00 Last Admin: 07/11/19 09:59 Dose: 0.25 ml Midazolam HCl (Versed 1 Mg/Ml) Confirm Administered Dose 2 mg .ROUTE .STK-MED ONE Stop: 07/11/19 11:20 Ondansetron HCl (Zofran) Confirm Administered Dose 4 mg .ROUTE .STK-MED ONE Stop: 07/11/19 15:17 Ondansetron HCl (Zofran) 4 mg IVPUSH ONETIME PRN PRN Reason: Nausea/Vomiting Stop: 07/11/19 18:00 Oxycodone HCl (Oxycontin) 10 mg PO ONETIME [facility] Stop: 07/11/19 12:00 Last Admin: 07/11/19 09:46 Dose: 10 mg Pregabalin (Lyrica) 50 mg PO ONETIME [facility] Stop: 07/11/19 12:00 Last Admin: 07/11/19 09:46 Dose: 50 mg Propofol (Diprivan 20 Ml) Confirm Administered Dose 200 mg .ROUTE .STK-MED ONE Stop: 07/11/19 11:19 Propofol (Diprivan 20 Ml) Confirm Administered Dose 200 mg .ROUTE .STK-MED ONE Stop: 07/11/19 15:08 Ropivacaine (Naropin 0.5%) Confirm Administered Dose 30 ml .ROUTE .STK-MED ONE Stop: 07/11/19 07:28 Sodium Chloride (Saline Flush) 10 ml FLUSH ASDIRECTED PRN PRN Reason: Keep Vein Open Stop: 07/11/19 18:00 Tranexamic Acid (Cyklokapron) Confirm Administered Dose 1,000 mg .ROUTE .STK- MED ONE Stop: 07/11/19 10:44 Last Admin: 07/11/19 15:07 Dose: 1,000 mg Vancomycin HCl (Vancomycin) Confirm Administered Dose 1 gm .ROUTE .STK-MED ONE Stop: 07/11/19 10:44 Last Admin: 07/11/19 15:07 Dose: 1 gm - Exam Wound/Incisions: Dressing Dry and Intact General: Alert, Cooperative, No Acute Distress Lungs: Normal Respiratory Effort Extremities: Other (Brittni's negative for BLE. NVS intact for BLE.) Sepsis Event Note - Evaluation Sepsis Screening Result: No Definite Risk - Focused Exam Vital Signs: Vital Signs Temp Pulse Resp BP Pulse Ox 07/12/19 08:26 99.0 F 90 16 126/46 L 07/12/19 08:00 90 L 07/12/19 03:31 98.1 F 73 18 125/49 L 92 L 07/12/19 00:58 98.2 F 77 17 107/41 L 99 Date Exam was Performed: 07/12/19 Time Exam was Performed: 12:43 - Problem List Review Problem List Initiated/Reviewed/Updated: Yes - My Orders Last 24 Hours: Active Orders 24 hr Category Date Time Status Notify Provider [RC] ASDIRECTED Care 07/11/19 15:50 Active Pulse Oximetry [RC] ASDIRECTED Care 07/11/19 15:51 Active Ready for Discharge [RC] PER UNIT ROUTINE Care 07/12/19 08:15 Active Calcium Carbonate Med 07/12/19 09:00 Active 1,200 mg PO DAILY Cholecalciferol (Vitamin D3) [Vitamin D3] Med 07/12/19 09:00 Active 5,000 unit PO DAILY Cyclobenzaprine [Flexeril] Med 07/11/19 21:00 Active 5 mg PO BID PRN Docusate Sodium [Colace] Med 07/11/19 21:00 Active 100 mg PO BID FLUoxetine [PROzac] Med 07/12/19 21:00 Active 20 mg PO BEDTIME Famotidine [Pepcid] Med 07/11/19 21:00 Active 20 mg PO Q12H Gabapentin [Neurontin] Med 07/11/19 21:00 Active 200 mg PO TID Gabapentin [Neurontin] Med 07/11/19 21:00 Active 600 mg PO TID Levothyroxine Med 07/12/19 06:00 Active 75 mcg PO ACBREAKFAST Magnesium Hydroxide [Milk of Magnesia] Med 07/11/19 21:00 Active 30 ml PO BID PRN Morphine Med 07/11/19 12:00 Active 2 mg IVPUSH Q2H PRN Potassium Chloride [Klor-Con M20] Med 07/12/19 09:00 Active 20 meq PO DAILY Rivaroxaban [Xarelto] Med 07/12/19 09:00 Active 10 mg PO DAILY Sennosides [Senna] Med 07/11/19 21:00 Active 8.6 mg PO BID PRN Simvastatin [Zocor] Med 07/11/19 21:00 Active 10 mg PO BEDTIME Vitamin B Complex with C [Super B With Vitamin C] Med 07/12/19 09:00 Active 1 cap PO DAILY Zolpidem [Ambien] Med 07/11/19 21:00 Active 10 mg PO BEDTIME PRN Medication Orders Bisacodyl (Dulcolax) 5 mg PO DAILY PRN PRN Reason: Constipation Calcium Carbonate/Glycine (Calcium Carbonate) 1,200 mg PO DAILY [facility] Last Admin: 07/12/19 08:28 Dose: 1,200 mg Cholecalciferol (Vitamin D3) 5,000 unit PO DAILY [facility] Last Admin: 07/12/19 08:28 Dose: 5,000 unit Cyclobenzaprine HCl (Flexeril) 5 mg PO BID PRN PRN Reason: Spasms Last Admin: 07/12/19 08:28 Dose: 5 mg Docusate Sodium (Colace) 100 mg PO BID [facility] Last Admin: 07/12/19 08:27 Dose: 100 mg Admin: 07/11/19 22:11 Dose: 100 mg Famotidine (Pepcid) 20 mg PO Q12H [facility] Last Admin: 07/12/19 08:28 Dose: 20 mg Admin: 07/11/19 22:11 Dose: 20 mg Fluoxetine HCl (Prozac) 20 mg PO BEDTIME [facility] Gabapentin (Neurontin) 600 mg PO TID [facility] Last Admin: 07/12/19 08:27 Dose: 600 mg Admin: 07/11/19 22:10 Dose: 600 mg Gabapentin (Neurontin) 200 mg PO TID [facility] Last Admin: 07/12/19 08:27 Dose: 200 mg Admin: 07/11/19 22:10 Dose: 200 mg Ketorolac Tromethamine (Toradol) 15 mg IVPUSH Q6H PRN PRN Reason: Pain Last Admin: 07/11/19 19:44 Dose: 15 mg Levothyroxine Sodium (Levothyroxine) 75 mcg PO ACBREAKFAST [facility] Last Admin: 07/12/19 06:08 Dose: 75 mcg Magnesium Hydroxide (Milk Of Magnesia) 30 ml PO BID PRN PRN Reason: Constipation Morphine Sulfate (Morphine) 2 mg IVPUSH Q2H PRN PRN Reason: Breakthrough Pain Naloxone HCl (Narcan) 0.1 mg IVPUSH Q5M PRN PRN Reason: Oversedation Ondansetron HCl (Zofran) 4 mg IVPUSH Q6H PRN PRN Reason: Nausea/Vomiting Oxycodone/Acetaminophen (Percocet 325-5 Mg) 1 - 2 tab PO Q4H PRN PRN Reason: Pain Last Admin: 07/12/19 10:56 Dose: 2 tab Admin: 07/12/19 06:59 Dose: 2 tab Admin: 07/12/19 03:32 Dose: 2 tab Admin: 07/11/19 22:42 Dose: 2 tab Potassium Chloride (Klor-Con M20) 20 meq PO DAILY [facility] Last Admin: 07/12/19 08:28 Dose: 20 meq Rivaroxaban (Xarelto) 10 mg PO DAILY [facility] Last Admin: 07/12/19 08:28 Dose: 10 mg Senna (Senna) 8.6 mg PO BID PRN PRN Reason: Constipation Simvastatin (Zocor) 10 mg PO BEDTIME [facility] Last Admin: 07/11/19 22:10 Dose: 10 mg Vitamin B Complex/Vitamin C (Super B With Vitamin C) 1 cap PO DAILY [facility] Last Admin: 07/12/19 08:28 Dose: 1 cap Zolpidem Tartrate (Ambien) 10 mg PO BEDTIME PRN PRN Reason: Insomnia - Assessment Assessment (Free Text/Narrative):: POD#1 - s/p right TKA - Plan Plan (Free Text/Narrative):: 1. Hgb 10.7. 2. Xarelto (family hx VTE), TEDs, frequent mobility. 3. Discharge to home today if cleared by Hospitalist service. 4. Outpatient PT. The pt's case was discussed with Dr. Diego today. Dr. Diego also presented to the pt's room to visit with the pt today.
--- NOTE | 2019-07-12 12:39 | PCM.DCSUM1 ---
Discharge Summary - Hospital Course Brief History: Ananya is a 74 yo female who underwent right TKA with Dr. Diego on 07-11-2019. The procedure was completed under spinal anesthesia and MAC with post-operative adductor canal block. The pt tolerated the procedure well and was admitted to the Medical-Surgical Unit. Medical management was provided by the Hospitalist service. The pt's Hospital course was uneventful. The pt's Hgb on POD#1 was 10.7. On POD#1, Xarelto 10mg PO daily was initiated for VTE prophylaxis. SCDs and TEDs were also ordered. A Mepilex dressing was placed at the incision site at the time of surgery and remained clean and dry. The pt participated in P.T. and O.T. and progressed well. The pt was allowed to WBAT and used a FWW for mobility. On POD#1, the pt was deemed appropriate to discharge to home. - Discharge Data Discharge Date: 07/12/19 Discharge Disposition: Home, Self-Care 01 Condition: Good - Referral to Home Health Primary Care Physician: PCP Unknown - Patient Summary/Data Consults: Consultations 07/11/19 06:52 OT Evaluation and Treatment [CONS] Routine PT Evaluation and Treatment [CONS] Routine 07/11/19 06:53 Consult to Physician [CONS] Routine - Patient Instructions Diet: Usual Diet as Tolerated Activity: Apply Ice, As Tolerated, Elevate Extremity, Full Weight Bearing Driving: Do Not Drive Showering/Bathing: May Shower Wound/Incision Care: Keep Operative Site/Wound Site Clean and Dry, Do NOT Change Dressing Notify Provider of: Fever, Increased Pain, Swelling and Redness, Drainage, Nausea and/or Vomiting Other/Special Instructions: Please get up and moving around EVERY HOUR while awake. This helps to prevent blood clots. Please use your walker and have help with mobility as needed. Take a short walk in your home every hour while awake. Please take the Xarelto blood thinner medication daily as directed. At home, please complete the exercises that you learned during the Hospital stay. Schedule for physical therapy. Use the pain medication as needed. The medication may cause drowsiness and constipation. Contact your primary care provider for instructions if you are constipated. You may use a stool softener like docusate sodium or Colace 100mg twice daily and/or a laxative like Miralax daily for constipation. Increase your water and fiber intake while you are using the pain medication. Discontinue use of the pain medication as soon as able. Please do not use other medications that may cause drowsiness (other pain medications, anxiety pills, cold medications, sleeping pills, etc) while using the prescription pain medication. Do not use alcohol while using the pain medication. You may use acetaminophen or Tylenol for pain management, however, please ensure you are not using over 4000 mg or 4 grams of acetaminophen per day from all sources. Your pain medication has 325mg of acetaminophen per tablet. At this time, please do not use ibuprofen (Motrin, Advil) or naproxen (Aleve) for pain management as you are using the aspirin. When the aspirin course is completed in 4 to 6 weeks, you could use ibuprofen or naproxen for pain management (if this is allowed by your primary care provider). Wear the RUBÉN hose during the day and you may remove these at night. Elevate the limb to decrease swelling. Place ice to the area often. Place a towel between your skin and the blue pad. Use the incentive spirometer often. Take deep breaths throughout the day. Please keep the dressing in place until follow-up. Notify the Clinic if the dressing becomes saturated. Increase your protein intake while you are healing. If you have diabetes, please closely monitor your blood sugars and notify your primary care provider with abnormal values. Elevated blood sugars increases the risk of infection. You may resume use of fish oil and CBD in 2 weeks. Call the Clinic with questions or concerns - [phone]. - Discharge Plan *PRESCRIPTION DRUG MONITORING PROGRAM REVIEWED*: No *COPY OF PRESCRIPTION DRUG MONITORING REPORT IN PATIENT HARJINDER: No Prescriptions/Med Rec: Acetaminophen/oxyCODONE [Percocet 325-5 MG] 1 - 2 tab PO Q4H PRN #60 tablet PRN Reason: Pain Cyclobenzaprine [Flexeril] 5 mg PO BID PRN #20 tablet PRN Reason: Spasms Rivaroxaban [Xarelto] 10 mg PO DAILY #30 tablet Home Medications: Home Meds Calcium Carbonate [Calcium] 1,000 mg PO DAILY 07/08/19 [History] Cholecalciferol (Vitamin D3) [Vitamin D3] 5,000 unit PO DAILY 07/08/19 [History] FLUoxetine HCl [Fluoxetine HCl] 20 mg PO DAILY 07/08/19 [History] Furosemide 40 mg PO DAILY 07/08/19 [History] Gabapentin [Neurontin] 800 mg PO TID 07/08/19 [History] Levothyroxine 75 mcg PO DAILY 07/08/19 [History] Potassium Chloride 20 meq PO DAILY 07/08/19 [History] Vitamin B Complex [B Complex] 1 tab PO DAILY 07/08/19 [History] Zolpidem [Ambien] 10 mg PO BEDTIME PRN 07/08/19 [History] atorvaSTATin [Lipitor] 10 mg PO BEDTIME 07/08/19 [History] Acetaminophen/oxyCODONE [Percocet 325-5 MG] 1 - 2 tab PO Q4H PRN #60 tablet 05/21 [Rx] Bisacodyl [Dulcolax] 5 mg PO DAILY PRN tablet 07/12/19 [Rx] Cyclobenzaprine [Flexeril] 5 mg PO BID PRN #20 tablet 07/12/19 [Rx] Docusate Sodium [Colace] 100 mg PO BID cap 07/12/19 [Rx] Famotidine [Pepcid] 20 mg PO Q12H tablet 07/12/19 [Rx] Magnesium Hydroxide [Milk of Magnesia] 30 ml PO BID PRN cup 07/12/19 [Rx] Rivaroxaban [Xarelto] 10 mg PO DAILY #30 tablet 07/12/19 [Rx] Sennosides [Senna] 8.6 mg PO BID PRN tablet 07/12/19 [Rx] Patient Handouts: Rivaroxaban oral tablets, Total Knee Replacement, Easy-to- Read Referrals: Yola Jenkins PA-C [Physician [employer]] - (You have 3 follow ups with Yola Jenkins as follow: 07/19/19-2:30pm 07/25/19- 2:30pm 08/23/19-1:15pm) - Discharge Summary/Plan Comment DC Time >30 min.: No - Patient Data Vitals - Most Recent: Last Vital Signs Temp 99.0 F 07/12/19 08:26 Pulse 90 07/12/19 08:26 Resp 16 07/12/19 08:26 BP 126/46 L 07/12/19 08:26 Pulse Ox 90 L 07/12/19 08:00 Weight - Most Recent: 229 lb 3.2 oz I&O - Last 24 hours: Intake & Output 07/11/19 07/12/19 07/12/19 22:59 06:59 14:59 Intake Total 900 900 Output Total 850 Balance 900 50 Lab Results - Last 24 hrs: Laboratory Results - last 24 hr 07/12/19 07/12/19 Range/Units 05:17 05:17 WBC 8.30 (3.98-10.04) K/mm3 RBC 3.78 L (3.98-5.22) M/mm3 Hgb 10.7 L (11.2-15.7) gm/dl Hct 35.1 (34.1-44.9) % MCV 92.9 (79.4-94.8) fl MCH 28.3 (25.6-32.2) pg MCHC 30.5 L (32.2-35.5) g/dl RDW Std Deviation 51.7 H (36.4-46.3) fL Plt Count 184 (182-369) K/mm3 MPV 10.5 (9.4-12.3) fl Sodium 143 (136-145) mEq/L Potassium 4.3 (3.5-5.1) mEq/L Chloride 108 H (98-107) mEq/L Carbon Dioxide 27 (21-32) mEq/L Anion Gap 12.3 (5-15) BUN 15 (7-18) mg/dL Creatinine 0.7 (0.55-1.02) mg/dL Est Cr Clr Drug Dosing 61.81 mL/min Estimated GFR (MDRD) > 60 (>60) mL/min BUN/Creatinine Ratio 21.4 H (14-18) Glucose 110 (83-115) mg/dL Calcium 8.2 L (8.5-10.1) mg/dL Total Bilirubin 0.8 (0.2-1.0) mg/dL AST 21 (15-37) U/L ALT 22 (14-59) U/L Alkaline Phosphatase 44 L (46-116) U/L Total Protein 6.3 L (6.4-8.2) g/dl Albumin 2.7 L (3.4-5.0) g/dl Globulin 3.6 gm/dL Albumin/Globulin Ratio 0.8 L (1-2) Med Orders - Current: Current Medications Bisacodyl (Dulcolax) 5 mg PO DAILY PRN PRN Reason: Constipation Calcium Carbonate/Glycine (Calcium Carbonate) 1,200 mg PO DAILY ON LICENSE OF [facility] Last Admin: 07/12/19 08:28 Dose: 1,200 mg Cholecalciferol (Vitamin D3) 5,000 unit PO DAILY ON LICENSE OF [facility] Last Admin: 07/12/19 08:28 Dose: 5,000 unit Cyclobenzaprine HCl (Flexeril) 5 mg PO BID PRN PRN Reason: Spasms Last Admin: 07/12/19 08:28 Dose: 5 mg Docusate Sodium (Colace) 100 mg PO BID ON LICENSE OF [facility] Last Admin: 07/12/19 08:27 Dose: 100 mg Famotidine (Pepcid) 20 mg PO Q12H ON LICENSE OF [facility] Last Admin: 07/12/19 08:28 Dose: 20 mg Fluoxetine HCl (Prozac) 20 mg PO BEDTIME ON LICENSE OF [facility] Gabapentin (Neurontin) 600 mg PO TID ON LICENSE OF [facility] Last Admin: 07/12/19 08:27 Dose: 600 mg Gabapentin (Neurontin) 200 mg PO TID ON LICENSE OF [facility] Last Admin: 07/12/19 08:27 Dose: 200 mg Ketorolac Tromethamine (Toradol) 15 mg IVPUSH Q6H PRN PRN Reason: Pain Last Admin: 07/11/19 19:44 Dose: 15 mg Levothyroxine Sodium (Levothyroxine) 75 mcg PO ACBREAKFAST ON LICENSE OF [facility] Last Admin: 07/12/19 06:08 Dose: 75 mcg Magnesium Hydroxide (Milk Of Magnesia) 30 ml PO BID PRN PRN Reason: Constipation Morphine Sulfate (Morphine) 2 mg IVPUSH Q2H PRN PRN Reason: Breakthrough Pain Naloxone HCl (Narcan) 0.1 mg IVPUSH Q5M PRN PRN Reason: Oversedation Ondansetron HCl (Zofran) 4 mg IVPUSH Q6H PRN PRN Reason: Nausea/Vomiting Oxycodone/Acetaminophen (Percocet 325-5 Mg) 1 - 2 tab PO Q4H PRN PRN Reason: Pain Last Admin: 07/12/19 10:56 Dose: 2 tab Potassium Chloride (Klor-Con M20) 20 meq PO DAILY ON LICENSE OF [facility] Last Admin: 07/12/19 08:28 Dose: 20 meq Rivaroxaban (Xarelto) 10 mg PO DAILY ON LICENSE OF [facility] Last Admin: 12/10/19 08:28 Dose: 10 mg Senna (Senna) 8.6 mg PO BID PRN PRN Reason: Constipation Simvastatin (Zocor) 10 mg PO BEDTIME ON LICENSE OF [facility] Last Admin: 07/11/19 22:10 Dose: 10 mg Vitamin B Complex/Vitamin C (Super B With Vitamin C) 1 cap PO DAILY ON LICENSE OF [facility] Last Admin: 07/12/19 08:28 Dose: 1 cap Zolpidem Tartrate (Ambien) 10 mg PO BEDTIME PRN PRN Reason: Insomnia Discontinued Medications Acetaminophen (Tylenol) 975 mg PO ONETIME ON LICENSE OF [facility] Stop: 07/11/19 12:00 Last Admin: 07/11/19 09:46 Dose: 975 mg Bupivacaine HCl (Sensorcaine-Mpf 0.25%) Confirm Administered Dose 30 ml .ROUTE .STK-MED ONE Stop: 07/11/19 10:44 Last Admin: 07/11/19 15:06 Dose: 30 ml Cefazolin Sodium (Ancef) Confirm Administered Dose 2 gm .ROUTE .STK-MED ONE Stop: 07/11/19 10:44 Last Admin: 07/11/19 15:03 Dose: 2 gm Cefazolin Sodium (Ancef) Confirm Administered Dose 2 gm .ROUTE .STK-MED ONE Stop: 07/11/19 11:17 Morphine Sulfate 8 mg/Epinephrine HCl 0.3 mg/Cefuroxime Sodium 750 mg/Ketorolac Tromethamine 30 mg/Sodium Chloride 27.9 ml 0 mg .XX ONETIME ONE Stop: 07/11/19 08:01 Last Admin: 07/11/19 15:06 Dose: 788.3 mg Ephedrine Sulfate (Ephedrine In Ns) Confirm Administered Dose 25 mg .ROUTE .STK- MED ONE Stop: 07/11/19 14:00 Ephedrine Sulfate (Ephedrine In Ns) Confirm Administered Dose 25 mg .ROUTE .STK- MED ONE Stop: 07/11/19 15:42 Ephedrine Sulfate (Ephedrine Sulfate) 5 mg IVPUSH ASDIRECTED PRN PRN Reason: Hypotension Stop: 07/11/19 18:00 Fentanyl (Sublimaze) Confirm Administered Dose 100 mcg .ROUTE .STK-MED ONE Stop: 07/11/19 11:20 Fentanyl (Sublimaze) 50 mcg IVPUSH Q5M PRN PRN Reason: pain Stop: 07/11/19 18:00 Fluoxetine HCl (Prozac) 20 mg PO DAILY ON LICENSE OF [facility] Fluoxetine HCl (Prozac) 20 mg PO ONETIME ONE Stop: 07/11/19 21:46 Last Admin: 07/11/19 22:11 Dose: 20 mg Lactated Ringer's (Ringers, Lactated) 1,000 mls @ 125 mls/hr IV ASDIRECTED ON LICENSE OF [facility] Stop: 07/11/19 23:00 Last Admin: 07/11/19 16:30 Dose: 125 mls/hr Cefazolin Sodium/Dextrose 2 gm (/ Premix) 50 mls @ 100 mls/hr IV Q8H ON LICENSE OF [facility] Stop: 07/12/19 11:29 Lidocaine HCl (Xylocaine-Mpf 1%) Confirm Administered Dose 4 mls @ as directed .ROUTE .STK-MED ONE Stop: 07/11/19 11:21 Lactated Ringer's (Ringers, Lactated) Confirm Administered Dose 1,000 mls @ as directed .ROUTE .STK-MED ONE Stop: 07/11/19 14:07 Lactated Ringer's (Ringers, Lactated) Confirm Administered Dose 1,000 mls @ as directed .ROUTE .STK-MED ONE Stop: 07/11/19 15:30 Cefazolin Sodium/Dextrose 2 gm (/ Premix) 50 mls @ 100 mls/hr IV Q8H ON LICENSE OF [facility] Stop: 07/12/19 17:00 Last Admin: 07/12/19 06:08 Dose: 100 mls/hr Cefazolin Sodium/Dextrose 2 gm (/ Premix) 50 mls @ 100 mls/hr IV ONETIME ONE Stop: 07/12/19 11:59 Last Admin: 07/12/19 12:00 Dose: 100 mls/hr Iodine (Iodine 2% Mild Tincture) Confirm Administered Dose 30 ml .ROUTE .STK- MED ONE Stop: 07/11/19 10:44 Last Admin: 07/11/19 14:58 Dose: 18 ml Lidocaine/Sodium Bicarbonate (Buffered Lidocaine 1% In Ns 8.4%) 0.25 ml IDERM ONETIME PRN PRN Reason: Prior to IV Start Stop: 07/11/19 18:00 Last Admin: 07/11/19 09:59 Dose: 0.25 ml Midazolam HCl (Versed 1 Mg/Ml) Confirm Administered Dose 2 mg .ROUTE .STK-MED ONE Stop: 07/11/19 11:20 Ondansetron HCl (Zofran) Confirm Administered Dose 4 mg .ROUTE .STK-MED ONE Stop: 07/11/19 15:17 Ondansetron HCl (Zofran) 4 mg IVPUSH ONETIME PRN PRN Reason: Nausea/Vomiting Stop: 07/11/19 18:00 Oxycodone HCl (Oxycontin) 10 mg PO ONETIME [facility] Stop: 07/11/19 12:00 Last Admin: 07/11/19 09:46 Dose: 10 mg Pregabalin (Lyrica) 50 mg PO ONETIME [facility] Stop: 07/11/19 12:00 Last Admin: 07/11/19 09:46 Dose: 50 mg Propofol (Diprivan 20 Ml) Confirm Administered Dose 200 mg .ROUTE .STK-MED ONE Stop: 07/11/19 11:19 Propofol (Diprivan 20 Ml) Confirm Administered Dose 200 mg .ROUTE .STK-MED ONE Stop: 07/11/19 15:08 Ropivacaine (Naropin 0.5%) Confirm Administered Dose 30 ml .ROUTE .STK-MED ONE Stop: 07/11/19 07:28 Sodium Chloride (Saline Flush) 10 ml FLUSH ASDIRECTED PRN PRN Reason: Keep Vein Open Stop: 07/11/19 18:00 Tranexamic Acid (Cyklokapron) Confirm Administered Dose 1,000 mg .ROUTE .STK- MED ONE Stop: 07/11/19 10:44 Last Admin: 07/11/19 15:07 Dose: 1,000 mg Vancomycin HCl (Vancomycin) Confirm Administered Dose 1 gm .ROUTE .STK-MED ONE Stop: 07/11/19 10:44 Last Admin: 07/11/19 15:07 Dose: 1 gm
--- NOTE | 2019-07-15 09:48 | PCM.OPNOTE ---
- General Post-Op/Procedure Note Date of Surgery/Procedure: 07/11/19 Operative Procedure(s): right total knee arthroplasty Pre Op Diagnosis: right knee osteoarthritis Post-Op Diagnosis: Same Anesthesia Technique: Local, MAC, Spinal Primary Surgeon: Holger Diego Anesthesia Provider: Radha Fofana Baseball Inspector And Repairer: Yola Jenkins Baseball Inspector And Repairer: Anneliese Dawson in mLs: 5 Complications: None Condition: Good Free Text/Narrative:: / cemented 9mm 29x9
--- NOTE | 2019-07-15 10:45 | OR ---
DATE OF OPERATION: 07/11/2019 SURGEON: Holger Diego MD OPERATION PERFORMED: Right total knee arthroplasty. PREOPERATIVE DIAGNOSIS: Right knee osteoarthrosis. POSTOPERATIVE DIAGNOSIS: Right knee osteoarthrosis. ANESTHESIA: Local MAC with spinal. ANESTHESIA PROVIDER: Radha Fofana. PRINCIPAL STATISTICAL PROGRAMMER: Yola Jenkins PA-C and Anneliese Dawson LPN. ESTIMATED BLOOD LOSS: 5 mL. COMPLICATIONS: None. CONDITION: Stable. IMPLANTS: 1. Dangelo size 3 cemented femur. 2. Arlington size 3 cemented universal tibial base plate. 3. Arlington size 3 x 9 mm CS polyethylene insert. 4. Arlington size 29 x 9 mm asymmetric patella. DESCRIPTION OF PROCEDURE: The patient was identified in the preop holding area. Proper site was marked and identified by the surgeon. The patient was taken back to the operating theater. After adequate anesthesia, the patient's right lower extremity had a nonsterile tourniquet applied and it was sterilely prepped and draped in the usual sterile fashion. OR time-out was performed. The patient received 2 g IV Ancef. At this time, the right lower extremity was exsanguinated. Tourniquet was insufflated to 300 mmHg. Standard medial parapatellar incision was made. Medial parapatellar arthrotomy was created. Deep fibers of the MCL were raised and anterior fat pad was resected. At this time, attention was turned to the patella. Patella measured 21, it was resected to a 13 for 29 x9 mm patella. Drill holes were then drilled and found to be in adequate position. The drill was then drilled in the distal femur and the intramedullary distal femoral cutting guide was then placed. 8 mm was resected off the distal femur and was found to be an adequate resection. Sizing guide was placed. It was found to be a size 3 cemented femur that was shown on the implant record at the beginning of this dictation. The drill holes were drilled for the epicondylar axis using Whitesides line and epicondyles as reference. At this time, the 4-in-1 cutting block was placed. An anterior posterior and anterior and posterior chamfer cuts were then completed. Attention was turned to the tibia. The posterior medial lateral retractors were placed. The extramedullary tibial guide was placed. It was placed in the old footprint of the ACL. It was aligned with the center of the ankle and 0 degrees of slope, 9 mm was then resected off the unaffected side. There was found to be an acceptable reduction. At this time, posterior osteophytes were removed along with medial and lateral meniscus. A trial implant was placed with a correct sized tibia that was mentioned at the beginning of the dictation. A Arlington size 3 x 9 mm CS polyethylene trial insert was then placed. The patient's knee was brought through range of motion. The patella was tracking centrally and was stable to varus and valgus stress. Alignment was found to be roughly at 0 degrees. The tibia was stamped and drilled in proper rotation. The universal tibial base plate was impacted in place. Next, the Arlington size 3 cemented femur impacted into place and the Arlington size 3 x 9 mm CS polyethylene insert was placed. The patient's knee was brought into full extension. The patella was then cemented in place at this time. Excess cement was removed. One liter dilute Betadine solution was irrigated through the knee along with 3 L of pulse lavage irrigation with Ancef. Periarticular injection was then completed. The patient's knee was brought through a range of motion. Once the cement had time to set up and it was found to be stable to varus valgus stress, the patella was tracking centrally with full range of motion. At this time, a #2 barbed suture was used for closure of the medial parapatellar arthrotomy. Topical tranexamic acid was placed. 2-0 Vicryl was used subcutaneously, Prineo was used for the skin. The patient tolerated the procedure well and was sent to the PACU in stable condition. MMMILLI /[id number] MTDYolanda
== END 2019-07-12 13:07 | disposition home or self-care (01) | DRG 470 ==
LOC: JD.SDS 09:02 → JD.MS 09:23 → JD.SDS 11:23 → JD.MS 11:24
PROVIDERS: ADMIT Orthopaedic Surgery; ATTEND Orthopaedic Surgery
PROC: 0SRC0J9 Replacement of Right Knee Joint with Synthetic Substitute, Cemented, Open Approach (ICD-10-PCS; principal; 2019-07-11)
DX: M17.11 Unilateral primary osteoarthritis, right knee (principal); G89.29 Other chronic pain; E03.9 Hypothyroidism, unspecified; M79.7 Fibromyalgia; G47.00 Insomnia, unspecified; K21.9 Gastro-esophageal reflux disease without esophagitis; H54.7 Unspecified visual loss; M19.90 Unspecified osteoarthritis, unspecified site; Z79.899 Other long term (current) drug therapy; Z79.890 Hormone replacement therapy; Z91.018 Allergy to other foods; Z88.8 Allergy status to other drugs, medicaments and biological substances; Z85.3 Personal history of malignant neoplasm of breast; Z86.73 Personal history of transient ischemic attack (TIA), and cerebral infarction without residual deficits; Z90.49 Acquired absence of other specified parts of digestive tract; Z90.89 Acquired absence of other organs; Z91.048 Other nonmedicinal substance allergy status; Z87.891 Personal history of nicotine dependence
CPT/HCPCS: 73560; 87641; A9270 ×4; J0690 ×2; J2001; J2250; J2704; J2795; J3010; J3370; J3490; J7120; 01402; 36415; 64450; 80053; 85027; 97110-GP; 97116-GP; 97161-GP; 97165-GO; 97535-GO; 99221; 99231; C1713; C1776; J0171; J0697; J1885; J2270; J2405; J7050

== ENCOUNTER 2019-09-26 07:34 | Day surgery (SDC) | payer MEDICARE, OTHER ==
[~2019-09-26 07:34] MED LIST changes: +Cyclobenzaprine 10 MG Tab PO PRN; +Ketorolac 15 MG/ML SDV IVPUSH PRN; +Magnesium Hydroxide 400 MG/5 ML Susp 30 ML Cup PO PRN; +Morphine 2 MG/ML Syringe IVPUSH PRN; -Morphine 8 MG, EPINEPHrine 0.3 MG, Cefuroxime 750 MG, Ketorolac 30 MG, Sodium Chloride ... ONE; -Ropivacaine 0.5% 5 MG/ML 30 ML SDV ONE; +Sennosides 8.6 MG Tab PO PRN
[2019-09-26] MEDS ORDERED: Vancomycin 1 GM SDV ONE (07:40)
[2019-09-26] MEDS ORDERED: ceFAZolin 1 GM Vial ONE ×2 (07:40→08:12)
[2019-09-26] MEDS ORDERED: Bupivacaine 0.25% 10 ML SDV ONE (07:40)
--- NOTE | 2019-09-26 07:50 | PCM.PREANE ---
Preanesthetic Assessment - Anesthesia/Transfusion/Family Hx Anesthesia History: Prior Anesthesia Without Reaction Transfusion History: Prior Transfusion Without Reaction - Review of Systems General: No Symptoms Pulmonary: No Symptoms Cardiovascular: No Symptoms Gastrointestinal: No Symptoms Neurological: No Symptoms Other: Reports: Easy Bruising, Thyroid Problems - Physical Assessment NPO Status Date: 09/25/19 NPO Status Time: 21:00 ASA Class: 2 Mental Status: Alert & Oriented x3 Airway Class: Mallampati = 1 Dentition: Reports: Normal Dentition Thyro-Mental Finger Breadths: 3 Mouth Opening Finger Breadths: 3 ROM/Head Extension: Limited/Partial Lungs: Clear to Auscultation, Normal Respiratory Effort Cardiovascular: Regular Rate, Regular Rhythm - Lab Values: Laboratory Last Values MRSA (PCR) Negative 09/13/19 11:23 - Allergies Allergies/Adverse Reactions: Allergies Allergy/AdvReac Type Severity Reaction Status Date / Time adhesive Allergy Rash Verified 09/23/19 11:40 bupropion HCl Allergy Hives Verified 09/23/19 11:40 [From Wellbutrin] wheat Allergy Cannot Verified 09/23/19 11:40 Remember - Acknowledgements Anesthesia Type Planned: Spinal, Regional Block (adductor canal for postoperative pain management) Pt an Appropriate Candidate for the Planned Anesthesia: Yes Alternatives and Risks of Anesthesia Discussed w Pt/Guardian: Yes Pt/Guardian Understands and Agrees with Anesthesia Plan: Yes PreAnesthesia Questionnaire HEENT History: Reports: Impaired Vision, Macular Degeneration Cardiovascular History: Reports: Other (See Below) Other Cardiovascular History: edema Respiratory History: Reports: None Gastrointestinal History: Reports: GERD Genitourinary History: Reports: None ELECTRIC POWER LINE REPAIRER History: Reports: None Musculoskeletal History: Reports: Fracture, Fibromyalgia, Osteoarthritis Neurological History: Reports: TIA Other Neuro History: LEFT ARM WEAKNESS AND SLURRED SPEECH, NO PERMANENT DEFECITS Psychiatric History: Reports: Depression Endocrine/Metabolic History: Reports: Hypothyroidism Hematologic History: Reports: None Immunologic History: Reports: None Oncologic (Cancer) History: Reports: Breast Dermatologic History: Reports: None - Infectious Disease History Infectious Disease History: Reports: Chicken Pox, Measles, Mumps - Past Surgical History Head Surgeries/Procedures: Reports: None HEENT Surgical History: Reports: Cataract Surgery, Eye Surgery, Tonsillectomy Cardiovascular Surgical History: Reports: None Respiratory Surgical History: Reports: None GI Surgical History: Reports: Cholecystectomy, Colonoscopy Female Surgical History: Reports: Breast Biopsy Male Surgical History: Reports: None Endocrine Surgical History: Reports: None Neurological Surgical History: Reports: Other (See Below) Other Neurological Surgeries/Procedures: back surgery Musculoskeletal Surgical History: Reports: Knee Replacement Oncologic Surgical History: Reports: Lumpectomy Other Oncologic Surgeries/Procedures: 2017-lumpectomy Dermatological Surgical History: Reports: None - SUBSTANCE USE Smoking Status *Q: Former Smoker Recreational Drug Use History: No - HOME MEDS Home Medications: Home Meds Calcium Carbonate [Calcium] 1,000 mg PO DAILY 07/08/19 [History] Cholecalciferol (Vitamin D3) [Vitamin D3] 5,000 unit PO DAILY 07/08/19 [History] FLUoxetine HCl [Fluoxetine HCl] 20 mg PO DAILY 07/08/19 [History] Furosemide 40 mg PO DAILY 07/08/19 [History] Gabapentin [Neurontin] 800 mg PO TID 07/08/19 [History] Levothyroxine 75 mcg PO DAILY 07/08/19 [History] Potassium Chloride 20 meq PO DAILY 07/08/19 [History] Vitamin B Complex [B Complex] 1 tab PO DAILY 07/08/19 [History] Zolpidem [Ambien] 10 mg PO BEDTIME PRN 07/08/19 [History] atorvaSTATin [Lipitor] 10 mg PO BEDTIME 07/08/19 [History] Acetaminophen [Tylenol Extra Strength] 1,000 mg PO BID PRN 09/23/19 [History] Aspirin [Adult Low Dose Aspirin EC] 81 mg PO DAILY 09/23/19 [History] Fish Oil/DHA/EPA [Fish Oil 1,200 MG] 2 cap PO DAILY 09/23/19 [History] - CURRENT (IN HOUSE) MEDS Current Meds: Current Medications Acetaminophen (Tylenol) 975 mg PO ONETIME [facility] Stop: 09/26/19 14:00 Bisacodyl (Dulcolax) 5 mg PO DAILY PRN PRN Reason: Constipation Morphine Sulfate 8 mg/Epinephrine HCl 0.3 mg/Cefuroxime Sodium 750 mg/Ketorolac Tromethamine 30 mg/Sodium Chloride 7.9 ml 0 mg .XX ONETIME ONE Stop: 09/26/19 09:31 Cyclobenzaprine HCl (Flexeril) 10 mg PO TID PRN PRN Reason: Spasms Docusate Sodium (Colace) 100 mg PO BID [facility] Famotidine (Pepcid) 20 mg PO Q12H [facility] Lactated Ringer's (Ringers, Lactated) 1,000 mls @ 125 mls/hr IV ASDIRECTED [facility] Stop: 09/26/19 23:00 Cefazolin Sodium/Dextrose 2 gm (/ Premix) 50 mls @ 100 mls/hr IV Q8H [facility] Stop: 09/26/19 23:44 Ketorolac Tromethamine (Toradol) 15 mg IVPUSH Q6H PRN PRN Reason: Pain Lidocaine/Sodium Bicarbonate (Buffered Lidocaine 1% In Ns 8.4%) 0.25 ml IDERM ONETIME PRN PRN Reason: Prior to IV Start Stop: 09/26/19 18:00 Magnesium Hydroxide (Milk Of Magnesia) 30 ml PO BID PRN PRN Reason: Constipation Morphine Sulfate (Morphine) 2 mg IVPUSH Q2H PRN PRN Reason: Breakthrough Pain Naloxone HCl (Narcan) 0.1 mg IVPUSH Q5M PRN PRN Reason: Oversedation Ondansetron HCl (Zofran) 4 mg IVPUSH Q6H PRN PRN Reason: Nausea/Vomiting Oxycodone HCl (Oxycontin) 10 mg PO ONETIME [facility] Stop: 09/26/19 14:00 Oxycodone/Acetaminophen (Percocet 325-5 Mg) 1 - 2 tab PO Q4H PRN PRN Reason: Pain Pregabalin (Lyrica) 50 mg PO ONETIME [facility] Stop: 09/26/19 14:00 Rivaroxaban (Xarelto) 10 mg PO DAILY [facility] Senna (Senna) 8.6 mg PO BID PRN PRN Reason: Constipation Sodium Chloride (Saline Flush) 10 ml FLUSH ASDIRECTED PRN PRN Reason: Keep Vein Open Stop: 09/26/19 18:00
[2019-09-26] MEDS ORDERED: Lidocaine 1% 4 ML ONE (08:13)
[2019-09-26] MEDS ORDERED: Midazolam 1 MG/ML 2 ML SDV ONE (08:13)
[2019-09-26] MEDS ORDERED: fentaNYL 100 MCG/2 ML SDV ONE (08:13)
[2019-09-26] MEDS ORDERED: Propofol 200 MG/20 ML SDV ONE (08:13)
[2019-09-26] MEDS: Lactated Ringers 1,000 ML IV SCH ×2 (08:29→11:24)
[2019-09-26] MEDS ORDERED: EPINEPHrine 1 MG/ML SDV ONE ×2 (08:37→09:18)
[2019-09-26] MEDS ORDERED: Ropivacaine 0.5% 5 MG/ML 30 ML SDV ONE (09:18)
[2019-09-26] MEDS ORDERED: Morphine 8 MG, EPINEPHrine 0.3 MG, Cefuroxime 750 MG, Ketorolac 30 MG, Sodium Chloride ... ONE ×5 (09:30)
[2019-09-26] MEDS ORDERED: Ondansetron 4 MG/2 ML SDV ONE (09:38)
--- NOTE | 2019-09-26 11:11 | PCM.POSTAN ---
POST ANESTHESIA ASSESSMENT - MENTAL STATUS Mental Status: Alert, Oriented - VITAL SIGNS Vital Signs: Last Vital Signs Temp 97.5 F 09/26/19 10:40 Pulse 74 09/26/19 07:40 Resp 12 09/26/19 11:00 BP 89/49 L 09/26/19 11:00 Pulse Ox 97 09/26/19 11:00 - RESPIRATORY Respiratory Status: Respiratory Rate WNL, Airway Patent, O2 Saturation Stable, Supplemental Oxygen - CARDIOVASCULAR CV Status: Pulse Rate WNL, Low Blood Pressure - GASTROINTESTINAL GI Status: No Symptoms - PAIN Pain Score: 0 (post SAB) - POST OP HYDRATION Hydration Status: Adequate & Stable
--- NOTE | 2019-09-26 11:20 | PCM.PRNOTE ---
- Free Text/Narrative Note: Postoperative regional pain control requested by surgeon. Pre-op Dx: Lt knee osteoarthritis. Post-op Rx: Total Lt knee arthroplasty. Procedure: Lt Adductor canal block with U/S guidance Requesting physician: Dr. Holger Mclain Risks and benefits discussed with the patient preoperatively including infection , bleeding, incomplete or failed block, possible nerve damage, local anesthetic toxicity. Permit signed. Patient after spinal anesthesia post surgery in PACU, stable , alert and awake. Time out performed at 10:52. Left mid-thigh was prepped with Chloraprep x 1 and allowed to dry. Under aseptic technique, the left femoral artery and sartorius muscle were identified under ultrasound prior to needle insertion. 4" Stimuplex needle #22 G was inserted under US guidance. Under direct visualization of needle tip the injection of 0.5% Ropivacaine with 1:200k epinephrine, total of 30 mls in divided doses, maintaining negative aspiration was completed without problems. No local anesthetic toxicity was noted. Patient is awake, stable and tolerated the procedure well. Time: 10:52 - 11:00 Please see attached U/S pictures.
--- NOTE | 2019-09-26 13:04 | CR ---
Left knee: AP and crosstable lateral views of the left knee were obtained. Comparison: No prior knee exam. Knee prosthesis is seen. Components are aligned. Soft tissue air is noted from surgical procedure. Underlying bony structures are intact. Impression: 1. Satisfactory postop radiographic appearance of recently placed left knee prosthesis. Diagnostic code #2 This report was dictated in [place] Standard Time
[2019-09-26] MEDS: Acetaminophen/oxyCODONE 325-5 MG Tab PO PRN ×2 (15:14→19:51)
[2019-09-26] MEDS: Gabapentin 600 MG Tab PO SCH ×2 (15:26→21:26)
[2019-09-26] MEDS: Gabapentin 100 MG Cap PO SCH ×2 (15:26→21:26)
[2019-09-26] MEDS: ceFAZolin 2 GM in Premix Bag 1 BAG IV SCH (16:17)
[2019-09-26] MEDS ORDERED: FLUoxetine 20 MG Cap PO SCH (21:00)
[2019-09-26] MEDS ORDERED: Simvastatin 10 MG Tab PO SCH (21:00)
[2019-09-26] MEDS: Famotidine 20 MG Tab PO SCH (21:24)
[2019-09-26] MEDS: Docusate Sodium 100 MG Cap PO SCH (21:25)
[2019-09-27] MEDS: ceFAZolin 2 GM in Premix Bag 1 BAG IV SCH ×2 (00:30→07:57)
[2019-09-27] MEDS: Acetaminophen/oxyCODONE 325-5 MG Tab PO PRN ×2 (00:57→09:05)
[2019-09-27 03:12] VITALS: PULSE 79
[2019-09-27] MEDS ORDERED: Levothyroxine 75 MCG Tab PO SCH (06:00)
--- NOTE | 2019-09-27 07:42 | PCM48HPAN ---
Post Anesthesia Note - EVALUATION WITHIN 48HRS OF ANESTHETIC Vital Signs in Normal Range: Yes Patient Participated in Evaluation: Yes Respiratory Function Stable: Yes Airway Patent: Yes Cardiovascular Function Stable: Yes Hydration Status Stable: Yes Pain Control Satisfactory: Yes Nausea and Vomiting Control Satisfactory: Yes Mental Status Recovered: Yes Vital Signs: Last Vital Signs Temp 36.7 C 09/27/19 02:16 Pulse 79 09/27/19 02:16 Resp 14 09/27/19 02:16 BP 109/46 L 09/27/19 02:16 Pulse Ox 98 09/27/19 02:16
[2019-09-27] MEDS ORDERED: Potassium Chloride 20 MEQ Tab.ER PO SCH (09:00)
[2019-09-27] MEDS ORDERED: Calcium Carbonate 600 MG Tab PO SCH (09:00)
[2019-09-27] MEDS ORDERED: Cholecalciferol (Vitamin D3) 5,000 UNIT Tab PO SCH (09:00)
[2019-09-27] MEDS ORDERED: Rivaroxaban 10 MG Tab PO SCH (09:00)
[2019-09-27] MEDS ORDERED: Vitamin B Complex With Vitamin C Cap PO SCH (09:00)
--- NOTE | 2019-09-27 09:13 | PCM.SURGPN ---
- General Info Date of Service: 09/27/19 POD#: 1 Functional Status: Reports: Pain Controlled, Tolerating Diet, Ambulating, Urinating, Incentive Spirometry, Other (The pt states she progressed well with PT yesterday also.) - Patient Data Vitals - Most Recent: Last Vital Signs Temp 98.1 F 09/27/19 02:16 Pulse 79 09/27/19 02:16 Resp 14 09/27/19 02:16 BP 109/46 L 09/27/19 02:16 Pulse Ox 98 09/27/19 02:16 Weight - Most Recent: 217 lb I&O - Last 24 Hours: Intake & Output 09/26/19 09/27/19 09/27/19 22:59 06:59 14:59 Intake Total 290 Output Total 400 Balance -110 Lab Results Last 24 Hrs: Laboratory Results - last 24 hr 09/27/19 09/27/19 Range/Units 05:20 05:20 WBC 6.77 (3.98-10.04) K/mm3 RBC 3.84 L (3.98-5.22) M/mm3 Hgb 10.8 L (11.2-15.7) gm/dl Hct 35.7 (34.1-44.9) % MCV 93.0 (79.4-94.8) fl MCH 28.1 (25.6-32.2) pg MCHC 30.3 L (32.2-35.5) g/dl RDW Std Deviation 49.6 H (36.4-46.3) fL Plt Count 208 (182-369) K/mm3 MPV 10.0 (9.4-12.3) fl Sodium 139 (136-145) mEq/L Potassium 4.4 (3.5-5.1) mEq/L Chloride 104 (98-107) mEq/L Carbon Dioxide 30 (21-32) mEq/L Anion Gap 9.4 (5-15) BUN 20 H (7-18) mg/dL Creatinine 1.1 H (0.55-1.02) mg/dL Est Cr Clr Drug Dosing 39.33 mL/min Estimated GFR (MDRD) 49 (>60) mL/min BUN/Creatinine Ratio 18.2 H (14-18) Glucose 98 (83-115) mg/dL Calcium 8.7 (8.5-10.1) mg/dL Total Bilirubin 0.7 (0.2-1.0) mg/dL AST 23 (15-37) U/L ALT 18 (14-59) U/L Alkaline Phosphatase 47 (46-116) U/L Total Protein 6.5 (6.4-8.2) g/dl Albumin 2.7 L (3.4-5.0) g/dl Globulin 3.8 gm/dL Albumin/Globulin Ratio 0.7 L (1-2) Med Orders - Current: Current Medications Bisacodyl (Dulcolax) 5 mg PO DAILY PRN PRN Reason: Constipation Calcium Carbonate/Glycine (Calcium Carbonate) 1,200 mg PO DAILY [facility] Cholecalciferol (Vitamin D3) 5,000 unit PO DAILY [facility] Cyclobenzaprine HCl (Flexeril) 10 mg PO TID PRN PRN Reason: Spasms Last Admin: 09/27/19 06:26 Dose: 10 mg Docusate Sodium (Colace) 100 mg PO BID [facility] Last Admin: 09/26/19 21:25 Dose: 100 mg Famotidine (Pepcid) 20 mg PO Q12H [facility] Last Admin: 09/26/19 21:24 Dose: 20 mg Fluoxetine HCl (Prozac) 20 mg PO BEDTIME [facility] Last Admin: 09/26/19 21:26 Dose: 20 mg Gabapentin (Neurontin) 600 mg PO TID [facility] Last Admin: 09/26/19 21:26 Dose: 600 mg Gabapentin (Neurontin) 200 mg PO TID [facility] Last Admin: 09/26/19 21:26 Dose: 200 mg Ketorolac Tromethamine (Toradol) 15 mg IVPUSH Q6H PRN PRN Reason: Pain Levothyroxine Sodium (Levothyroxine) 75 mcg PO ACBREAKFAST [facility] Last Admin: 09/27/19 06:26 Dose: 75 mcg Magnesium Hydroxide (Milk Of Magnesia) 30 ml PO BID PRN PRN Reason: Constipation Morphine Sulfate (Morphine) 2 mg IVPUSH Q2H PRN PRN Reason: Breakthrough Pain Naloxone HCl (Narcan) 0.1 mg IVPUSH Q5M PRN PRN Reason: Oversedation Ondansetron HCl (Zofran) 4 mg IVPUSH Q6H PRN PRN Reason: Nausea/Vomiting Oxycodone/Acetaminophen (Percocet 325-5 Mg) 1 - 2 tab PO Q4H PRN PRN Reason: Pain Last Admin: 09/27/19 09:05 Dose: 2 tab Potassium Chloride (Klor-Con M20) 20 meq PO DAILY [facility] Rivaroxaban (Xarelto) 10 mg PO DAILY [facility] Senna (Senna) 8.6 mg PO BID PRN PRN Reason: Constipation Simvastatin (Zocor) 10 mg PO BEDTIME [facility] Last Admin: 09/26/19 21:26 Dose: 10 mg Vitamin B Complex/Vitamin C (Super B With Vitamin C) 1 cap PO DAILY [facility] Discontinued Medications Acetaminophen (Tylenol) 975 mg PO ONETIME [facility] Stop: 09/26/19 14:00 Last Admin: 09/26/19 07:44 Dose: 975 mg Bupivacaine HCl (Sensorcaine-Mpf 0.25%) Confirm Administered Dose 30 ml .ROUTE .STK-MED ONE Stop: 09/26/19 07:41 Last Admin: 09/26/19 10:07 Dose: 30 ml Cefazolin Sodium (Ancef) Confirm Administered Dose 2 gm .ROUTE .STK-MED ONE Stop: 09/26/19 07:41 Last Admin: 09/26/19 10:02 Dose: 2 gm Cefazolin Sodium (Ancef) Confirm Administered Dose 2 gm .ROUTE .STK-MED ONE Stop: 09/26/19 08:13 Morphine Sulfate 8 mg/Epinephrine HCl 0.3 mg/Cefuroxime Sodium 750 mg/Ketorolac Tromethamine 30 mg/Sodium Chloride 7.9 ml 0 mg .XX ONETIME ONE Stop: 09/26/19 09:31 Last Admin: 09/26/19 10:06 Dose: 788.3 mg Epinephrine HCl (Adrenalin) Confirm Administered Dose 1 mg .ROUTE .STK-MED ONE Stop: 09/26/19 08:38 Epinephrine HCl (Adrenalin) Confirm Administered Dose 1 mg .ROUTE .STK-MED ONE Stop: 09/26/19 09:19 Fentanyl (Sublimaze) Confirm Administered Dose 100 mcg .ROUTE .STK-MED ONE Stop: 09/26/19 08:14 Lactated Ringer's (Ringers, Lactated) 1,000 mls @ 125 mls/hr IV ASDIRECTED [facility] Stop: 09/26/19 23:00 Last Admin: 09/26/19 11:24 Dose: 125 mls/hr Cefazolin Sodium/Dextrose 2 gm (/ Premix) 50 mls @ 100 mls/hr IV Q8H [facility] Stop: 09/27/19 08:44 Last Admin: 09/27/19 07:57 Dose: 100 mls/hr Lidocaine HCl (Xylocaine-Mpf 1%) Confirm Administered Dose 4 mls @ as directed .ROUTE .STK-MED ONE Stop: 09/26/19 08:14 Lidocaine/Sodium Bicarbonate (Buffered Lidocaine 1% In Ns 8.4%) 0.25 ml IDERM ONETIME PRN PRN Reason: Prior to IV Start Stop: 09/26/19 18:00 Last Admin: 09/26/19 08:29 Dose: 0.25 ml Midazolam HCl (Versed 1 Mg/Ml) Confirm Administered Dose 2 mg .ROUTE .STK-MED ONE Stop: 09/26/19 08:14 Miscellaneous Medication (Phenylephrine 1 Mg/10 Ml-Ns) Confirm Administered Dose 1 mg IV .STK-MED ONE Stop: 09/26/19 10:03 Ondansetron HCl (Zofran) Confirm Administered Dose 4 mg .ROUTE .STK-MED ONE Stop: 09/26/19 09:39 Oxycodone HCl (Oxycontin) 10 mg PO ONETIME [facility] Stop: 09/26/19 14:00 Last Admin: 09/26/19 07:44 Dose: 10 mg Pregabalin (Lyrica) 50 mg PO ONETIME [facility] Stop: 09/26/19 14:00 Last Admin: 09/26/19 07:44 Dose: 50 mg Propofol (Diprivan 20 Ml) Confirm Administered Dose 400 mg .ROUTE .STK-MED ONE Stop: 09/26/19 08:14 Ropivacaine (Naropin 0.5%) Confirm Administered Dose 30 ml .ROUTE .STK-MED ONE Stop: 09/26/19 09:19 Sodium Chloride (Saline Flush) 10 ml FLUSH ASDIRECTED PRN PRN Reason: Keep Vein Open Stop: 09/26/19 18:00 Tranexamic Acid (Cyklokapron) Confirm Administered Dose 1,000 mg .ROUTE .STK- MED ONE Stop: 09/26/19 07:41 Last Admin: 09/26/19 10:09 Dose: 1,000 mg Vancomycin HCl (Vancomycin) Confirm Administered Dose 1 gm .ROUTE .STK-MED ONE Stop: 09/26/19 07:41 Last Admin: 09/26/19 10:09 Dose: 1 gm - Exam Wound/Incisions: Dressing Dry and Intact General: Alert, Cooperative, No Acute Distress Lungs: Normal Respiratory Effort Extremities: Other (NVS intact for LLE. Brittni's negative.) Sepsis Event Note - Evaluation Sepsis Screening Result: No Definite Risk - Focused Exam Vital Signs: Vital Signs Temp Pulse Resp BP Pulse Ox 09/27/19 02:16 98.1 F 79 14 109/46 L 98 09/26/19 23:15 95 09/26/19 23:10 88 L Date Exam was Performed: 09/27/19 Time Exam was Performed: 09:12 - Problem List Review Problem List Initiated/Reviewed/Updated: Yes - My Orders Last 24 Hours: Active Orders 24 hr Category Date Time Status Pulse Oximetry [RC] ASDIRECTED Care 09/26/19 08:33 Active Ready for Discharge [RC] PER UNIT ROUTINE Care 09/27/19 09:02 Active Vital Signs [RC] Q15M Care 09/26/19 08:33 Inactive Regular Diet [DIET] Diet 09/26/19 Lunch Active Calcium Carbonate Med 09/27/19 09:00 Active 1,200 mg PO DAILY Cholecalciferol (Vitamin D3) [Vitamin D3] Med 09/27/19 09:00 Active 5,000 unit PO DAILY Docusate Sodium [Colace] Med 09/26/19 21:00 Active 100 mg PO BID FLUoxetine [PROzac] Med 09/26/19 21:00 Active 20 mg PO BEDTIME Famotidine [Pepcid] Med 09/26/19 21:00 Active 20 mg PO Q12H Gabapentin [Neurontin] Med 09/26/19 15:00 Active 200 mg PO TID Gabapentin [Neurontin] Med 09/26/19 15:00 Active 600 mg PO TID Levothyroxine Med 09/27/19 06:00 Active 75 mcg PO ACBREAKFAST Potassium Chloride [Klor-Con M20] Med 09/27/19 09:00 Active 20 meq PO DAILY Rivaroxaban [Xarelto] Med 09/27/19 09:00 Active 10 mg PO DAILY Simvastatin [Zocor] Med 09/26/19 21:00 Active 10 mg PO BEDTIME Vitamin B Complex with C [Super B With Vitamin C] Med 09/27/19 09:00 Active 1 cap PO DAILY Medication Orders Bisacodyl (Dulcolax) 5 mg PO DAILY PRN PRN Reason: Constipation Calcium Carbonate/Glycine (Calcium Carbonate) 1,200 mg PO DAILY [facility] Cholecalciferol (Vitamin D3) 5,000 unit PO DAILY [facility] Cyclobenzaprine HCl (Flexeril) 10 mg PO TID PRN PRN Reason: Spasms Last Admin: 09/27/19 06:26 Dose: 10 mg Docusate Sodium (Colace) 100 mg PO BID [facility] Last Admin: 09/26/19 21:25 Dose: 100 mg Famotidine (Pepcid) 20 mg PO Q12H [facility] Last Admin: 09/26/19 21:24 Dose: 20 mg Fluoxetine HCl (Prozac) 20 mg PO BEDTIME [facility] Last Admin: 09/26/19 21:26 Dose: 20 mg Gabapentin (Neurontin) 600 mg PO TID [facility] Last Admin: 09/26/19 21:26 Dose: 600 mg Admin: 09/26/19 15:26 Dose: 600 mg Gabapentin (Neurontin) 200 mg PO TID [facility] Last Admin: 09/26/19 21:26 Dose: 200 mg Admin: 09/26/19 15:26 Dose: 200 mg Ketorolac Tromethamine (Toradol) 15 mg IVPUSH Q6H PRN PRN Reason: Pain Levothyroxine Sodium (Levothyroxine) 75 mcg PO ACBREAKFAST [facility] Last Admin: 09/27/19 06:26 Dose: 75 mcg Magnesium Hydroxide (Milk Of Magnesia) 30 ml PO BID PRN PRN Reason: Constipation Morphine Sulfate (Morphine) 2 mg IVPUSH Q2H PRN PRN Reason: Breakthrough Pain Naloxone HCl (Narcan) 0.1 mg IVPUSH Q5M PRN PRN Reason: Oversedation Ondansetron HCl (Zofran) 4 mg IVPUSH Q6H PRN PRN Reason: Nausea/Vomiting Oxycodone/Acetaminophen (Percocet 325-5 Mg) 1 - 2 tab PO Q4H PRN PRN Reason: Pain Last Admin: 09/27/19 09:05 Dose: 2 tab Admin: 09/27/19 00:57 Dose: 2 tab Admin: 09/26/19 19:51 Dose: 2 tab Admin: 09/26/19 15:14 Dose: 2 tab Potassium Chloride (Klor-Con M20) 20 meq PO DAILY [facility] Rivaroxaban (Xarelto) 10 mg PO DAILY [facility] Senna (Senna) 8.6 mg PO BID PRN PRN Reason: Constipation Simvastatin (Zocor) 10 mg PO BEDTIME [facility] Last Admin: 09/26/19 21:26 Dose: 10 mg Vitamin B Complex/Vitamin C (Super B With Vitamin C) 1 cap PO DAILY [facility] - Assessment Assessment (Free Text/Narrative):: POD#1 - left TKA - Plan Plan (Free Text/Narrative):: 1. Hgb 10.8. 2. Xarelto 10mg PO daily (family hx VTE). 3. Discharge to home today. The pt's case was discussed with Dr. Diego.
[2019-09-27] MEDS: Gabapentin 100 MG Cap PO SCH (09:49)
[2019-09-27] MEDS: Docusate Sodium 100 MG Cap PO SCH (09:49)
[2019-09-27] MEDS: Gabapentin 600 MG Tab PO SCH (09:49)
[2019-09-27] MEDS: Famotidine 20 MG Tab PO SCH (09:50)
[2019-09-27 10:33] VITALS: BP 118/54
--- NOTE | 2019-09-30 13:33 | PCM.OPNOTE ---
- General Post-Op/Procedure Note Date of Surgery/Procedure: 09/26/19 Operative Procedure(s): left total knee arthroplasty Pre Op Diagnosis: left knee osteoarthrosis Post-Op Diagnosis: Same Anesthesia Technique: Local, MAC, Spinal Primary Surgeon: Holger Diego Anesthesia Provider: Michael Goff [employer]vp [employer]: Yola Jenkins [employer]vp [employer]: Anneliese Dawson in mLs: 5 Complications: None Condition: Good Free Text/Narrative:: 3 3 29x9 9mm cemented
--- NOTE | 2019-09-30 15:03 | OR ---
DATE OF OPERATION: 09/26/2019 SURGEON: Holger Diego MD OPERATION PERFORMED: Left total knee arthroplasty. PREOPERATIVE DIAGNOSIS: Left knee osteoarthrosis. POSTOPERATIVE DIAGNOSIS: Left knee osteoarthrosis. ANESTHESIA: Local MAC with spinal. ANESTHESIA PROVIDER: Nova Trevizo. MARKING ROOM SUPERVISOR: Yola Jenkins PA-C and Anneliese Dawson LPN. ESTIMATED BLOOD LOSS: 5 mL. COMPLICATIONS: None. CONDITION: Stable. IMPLANTS: 1. Josephine size 3 cemented PS femur. 2. Josephine size 3 cemented tibial baseplate. 3. Dangelo size 3, 9 mm PS X3 polyethylene. 4. Josephine size 29 x 9 mm cemented asymmetric patella. DESCRIPTION OF PROCEDURE: The patient was identified in the preop holding area. Proper site was marked and identified by the surgeon. The patient was taken back to the operating theater. After adequate anesthesia, the patient's left lower extremity had a nonsterile tourniquet applied and it was sterilely prepped and draped in the usual sterile fashion. OR time-out was performed. The patient received 2 g IV Ancef. At this time, the left lower extremity was exsanguinated. Tourniquet was insufflated to 300 mmHg. Standard medial parapatellar incision was made. Medial parapatellar arthrotomy was created. Deep fibers of the MCL were raised and anterior fat pad was resected. At this time, attention was turned to the patella. Patella measured 21, it was resected to a 13 for 29 x 9 mm patella. Drill holes were then drilled and found to be in adequate position. The drill was then drilled in the distal femur and the intramedullary distal femoral cutting guide was then placed. 8 mm was resected off the distal femur and was found to be an adequate resection. Sizing guide was placed. It was found to be a size 3 cemented PS femur that was shown on the implant record at the beginning of this dictation. The drill holes were drilled for the epicondylar axis using Whitesides line and epicondyles as reference. At this time, the 4-in-1 cutting block was placed. An anterior posterior and anterior and posterior chamfer cuts were then completed. Box cut was completed at this time. Attention was turned to the tibia. The posterior medial lateral retractors were placed. The extramedullary tibial guide was placed. It was placed in the old footprint of the ACL. It was aligned with the center of the ankle and 0 degrees of slope, 9 mm was then resected off the unaffected side. There was found to be an acceptable reduction. At this time, posterior osteophytes were removed along with medial and lateral meniscus. A trial implant was placed with a correct sized tibia that was mentioned at the beginning of the dictation. A Josephine size 3, 9 mm PS X3 polyethylene insert was then placed. The patient's knee was brought through range of motion. The patella was tracking centrally and was stable to varus and valgus stress. Alignment was found to be roughly at 0 degrees. The tibia was stamped and drilled in proper rotation. The universal tibial base plate was impacted in place. Next, the Josephine size 3 cemented PS femur impacted into place and the Dangelo size 3, 9 mm PS X3 polyethylene insert was placed. The patient's knee was brought into full extension. The patella was then cemented in place at this time. One liter dilute Betadine solution was irrigated through the knee along with 3 L of pulse lavage irrigation with Ancef. Periarticular injection was then completed. The patient's knee was brought through a range of motion. Once the cement had time to set up and it was found to be stable to varus valgus stress, the patella was tracking centrally with full range of motion. At this time, a #2 barbed suture was used for closure of the medial parapatellar arthrotomy. Topical tranexamic acid was placed. 2-0 Vicryl was used subcutaneously, Prineo was used for the skin. The patient tolerated the procedure well and was sent to the PACU in stable condition. MMMILLI /[id number] MICHAEL
== END 2019-09-27 12:40 | disposition home or self-care (01) ==
LOC: JD.SDS 07:34 → JD.OB 12:11 → JD.SDS 09-27 12:40
PROVIDERS: ATTEND Orthopaedic Surgery
DX: M17.12 Unilateral primary osteoarthritis, left knee (principal); M79.7 Fibromyalgia; E03.9 Hypothyroidism, unspecified; F32.9 Major depressive disorder, single episode, unspecified; G47.00 Insomnia, unspecified; Z91.018 Allergy to other foods; Z88.8 Allergy status to other drugs, medicaments and biological substances; Z87.891 Personal history of nicotine dependence; Z79.899 Other long term (current) drug therapy; Z79.82 Long term (current) use of aspirin; Z91.048 Other nonmedicinal substance allergy status; G89.18 Other acute postprocedural pain
CPT/HCPCS: 27447; 36415; 73560; 80053; 85027; 87641; 97110; 97116; 97161; 97165; 97530; 97535; A9270; C1713; C1776; J0171; J0690; J0697; J1885; J2001; J2250; J2270; J2405; J2704; J2795; J3010; J3370; J3490; J7120; 01402; 64450